=== PATIENT | female | born 1945 | race Asian ===

== ENCOUNTER 2016-05-13 18:51 | Inpatient (IN) | payer MEDICAID, MEDICARE ==
[2016-05-13] VITALS (8 sets, daily range): BP systolic 110–176; BP diastolic 58–106
[~2016-05-13] VITALS: Ht 157.5 cm; Wt 77.1 kg
[~2016-05-13 18:51] MED LIST: AMLO10TA2 PO; ASPI-991 PO; LEVO500T15 PO; MAG1TAB.8 PO; MONT10TA22 PO; PRED20TA PO; VALS80TA2 PO
[2016-05-13] MEDS ORDERED: methylPREDNISolone SOD SUCC 125 MG/2ML VIAL IV ONE (19:00)
[2016-05-13] MEDS ORDERED: IPRATROPIUM NEB FS 0.5 MG/2.5 ML AMPUL.NEB NEB ONE (19:00)
[2016-05-13] MEDS ORDERED: ALBUTEROL FS 2.5 MG/3 ML VIAL.NEB NEB ONE (19:00)
[2016-05-13] MEDS ORDERED: AZITHROMYCIN 500 MG in IV D5W 250 ML IV ONE (19:00)
[2016-05-13 19:14] LABS: BASOPHILS # (AUTO) 0.1 /CMM (0.0-0.2); BASOPHILS % (AUTO) 0.8 % (0.0-2.0); DIFF TOTAL % 100 %; EOSINOPHILS % (AUTO) 0.5 % (0.0-6.0); HEMATOCRIT 33 % (33-45); HEMOGLOBIN 10.9 g/dL (11.5-14.8); LYMPHOCYTES # (AUTO) 2.6 /CMM (0.8-4.8); LYMPHOCYTES % (AUTO) 33.4 % (20.0-44.0); MEAN CORPUSCULAR HEMOGLOBIN 28 PG (26.0-33.0); MEAN CORPUSCULAR HGB CONC 33 g/dl (31.0-36.0); MEAN CORPUSCULAR VOLUME 85 fL (82-100); MONOCYTES # (AUTO) 0.4 /CMM (0.1-1.30); MONOCYTES % (AUTO) 5.6 % (2.0-12.0); NEUTROPHILS # (AUTO) 4.5 /CMM (1.8-8.9); NEUTROPHILS % (AUTO) 59.7 % (43.0-81.0); PLATELET COUNT (AUTO) 298 /CMM (150-450); RED BLOOD CELL COUNT(AUTO) 3.88 MIL/uL (4.0-5.2); WHITE BLOOD COUNT (AUTO) 7.6 K/uL (4.3-11.0)
[2016-05-13] MEDS ORDERED: IPRATROPIUM NEB FS 0.5 MG/2.5 ML AMPUL.NEB ONE ×2 (19:24→19:25)
[2016-05-13] MEDS ORDERED: ALBUTEROL FS 2.5 MG/3 ML VIAL.NEB ONE (19:24)
[2016-05-13 19:33] LABS: TROPONIN I < 0.017 ng/mL (0.00-0.056)
[2016-05-13 19:37] LABS: LACTIC ACID 0.6 mmol/L (0.4-2.0)
[2016-05-13 19:38] LABS: ALANINE AMINOTRANSFERASE 22 U/L (12-78); ALBUMIN 3.5 g/dL (3.4-5.0); ANION GAP 7 (5-14); ASPARTATE AMINOTRANSFERASE 33 U/L (15-37); BILIRUBIN,DIRECT 0.1 mg/dL (0.0-0.2); BILIRUBIN,TOTAL 0.5 mg/dL (0.2-1.0); CALCIUM, SERUM 8.5 mg/dL (8.5-10.1); CARBON DIOXIDE 35 mmol/L (21-32); CREATININE 0.7 mg/dL (0.6-1.3); GFR 83 mL/min (>60); GLUCOSE 119 mg/dL (74-106); POTASSIUM 4.7 mmol/L (3.5-5.1); TOTAL PROTEIN, SERUM 7.3 g/dL (6.4-8.2); UREA NITROGEN, BLOOD 7 mg/dL (7-18)
[2016-05-13 19:50] LABS: INDIRECT BILIRUBIN 0.4 mg/dL (0.0-1.1); SODIUM SERUM 116 mmol/L (136-145)
[2016-05-13 19:51] LABS: CHLORIDE 80 mmol/L (98-107)
[2016-05-13 20:09] LABS: ABG BASE EXCESS 8.4 mmol/L; ABG PCO2 85.8 mmHg (35.0-45.0); ABG PH 7.264 (7.350-7.450); ABG PO2 257.4 mmHg (75.0-100.0); ABG TOTAL HEMOGLOBIN 11.3 G/dL (12.0-16.0); ALLEN TEST Pass; AaDO2 2.6 mmHg; O2Hb 97.9 % (94.0-97.0)
[2016-05-13] MEDS ORDERED: CLONIDINE HCL 0.1 MG TABLET PO PRN (21:30)
[2016-05-13] MEDS ORDERED: IPRATROPIUM NEB FS 0.5 MG/2.5 ML AMPUL.NEB NEB PRN (21:30)
[2016-05-13] MEDS ORDERED: ALBUTEROL FS 2.5 MG/0.5 ML VIAL.NEB NEB PRN (21:30)
[2016-05-13] MEDS ORDERED: SODIUM CHLORIDE 1000 MG TABLET.SOL PO ONE (21:30)
[2016-05-13] MEDS ORDERED: SODIUM CHLORIDE 1000 MG TABLET.SOL ONE (21:39)
[2016-05-14] VITALS (29 sets, daily range): BP systolic 94–138; BP diastolic 46–86
[2016-05-14 05:01] LABS: BASOPHILS % (AUTO) 0.1 % (0.0-2.0); DIFF TOTAL % 100 %; HEMATOCRIT 33 % (33-45); HEMOGLOBIN 10.6 g/dL (11.5-14.8); LYMPHOCYTES # (AUTO) 0.5 /CMM (0.8-4.8); LYMPHOCYTES % (AUTO) 7.6 % (20.0-44.0); MEAN CORPUSCULAR HEMOGLOBIN 28 PG (26.0-33.0); MEAN CORPUSCULAR HGB CONC 32 g/dl (31.0-36.0); MEAN CORPUSCULAR VOLUME 86 fL (82-100); MONOCYTES % (AUTO) 0.5 % (2.0-12.0); NEUTROPHILS % (AUTO) 91.8 % (43.0-81.0); PLATELET COUNT (AUTO) 296 /CMM (150-450); RED BLOOD CELL COUNT(AUTO) 3.84 MIL/uL (4.0-5.2); WHITE BLOOD COUNT (AUTO) 6.6 K/uL (4.3-11.0)
[2016-05-14 05:16] LABS: CALCIUM, SERUM 8.5 mg/dL (8.5-10.1); CREATININE 0.8 mg/dL (0.6-1.3); POTASSIUM 4.2 mmol/L (3.5-5.1)
[2016-05-14 05:27] LABS: THYROID STIMULATING HORMONE 1.038 uIU/mL (0.358-3.74)
[2016-05-14] MEDS ORDERED: methylPREDNISolone SOD SUCC 125 MG/2ML VIAL IV ONE (09:00)
[2016-05-14] MEDS: SODIUM CHLORIDE 1000 MG TABLET.SOL PO SCH ×2 (09:19→17:39)
[2016-05-14] MEDS ORDERED: IV SET PRIMARY PUMP SET 1 EA INFUS.SET MC ONE (10:11)
[2016-05-14] MEDS: ASPIRIN EC 81 MG TABLET.DR PO SCH (10:20)
[2016-05-14] MEDS: AMLODIPINE BESYLATE 10 MG TABLET PO SCH (10:20)
[2016-05-14] MEDS: Magnesium 1GM/D5W 100ML PREMIX 100 ML IV SCH ×4 (10:20→21:32)
[2016-05-14] MEDS: ACETAMINOPHEN 325 MG TABLET PO PRN ×2 (10:20→20:35)
[2016-05-14] MEDS: MONTELUKAST SODIUM (10MG) 10 MG TABLET PO SCH (10:20)
[2016-05-14] MEDS: VALSARTAN 80 MG TABLET PO SCH ×2 (10:21→17:00)
[2016-05-14 10:27] LABS: ABG BASE EXCESS 9.6 mmol/L; ABG HCO3 38.4 mmol/L; ABG PCO2 78.5 mmHg (35.0-45.0); ABG PH 7.307 (7.350-7.450); ABG PO2 57.3 mmHg (75.0-100.0); ABG TOTAL HEMOGLOBIN 11.1 G/dL (12.0-16.0); ALLEN TEST Pass; O2Hb 84.9 % (94.0-97.0)
[2016-05-14] MEDS: methylPREDNISolone SOD SUCC 40 MG/ML VIAL IV SCH ×3 (10:30→17:39)
[2016-05-14] MEDS: ALBUTEROL FS 2.5 MG/0.5 ML VIAL.NEB NEB SCH ×4 (10:49→23:10)
[2016-05-14] MEDS: IPRATROPIUM NEB FS 0.5 MG/2.5 ML AMPUL.NEB NEB SCH ×4 (10:49→23:10)
[2016-05-14] MEDS: LEVOFLOXACIN (500MG) 500 MG TABLET PO SCH (11:27)
[2016-05-14 20:41] LABS: URINE SODIUM, RANDOM 5 mmol/l (40-220)
[2016-05-15] VITALS (28 sets, daily range): BP systolic 90–173; BP diastolic 50–78
[2016-05-15] MEDS: IPRATROPIUM NEB FS 0.5 MG/2.5 ML AMPUL.NEB NEB SCH ×6 (03:12→23:53)
[2016-05-15] MEDS: ALBUTEROL FS 2.5 MG/0.5 ML VIAL.NEB NEB SCH ×6 (03:12→23:53)
[2016-05-15 04:36] LABS: DIFF TOTAL % 100 %; EOSINOPHILS % (AUTO) 0.3 % (0.0-6.0); HEMATOCRIT 32 % (33-45); HEMOGLOBIN 10.1 g/dL (11.5-14.8); LYMPHOCYTES # (AUTO) 0.8 /CMM (0.8-4.8); LYMPHOCYTES % (AUTO) 9.9 % (20.0-44.0); MEAN CORPUSCULAR HEMOGLOBIN 28 PG (26.0-33.0); MEAN CORPUSCULAR HGB CONC 32 g/dl (31.0-36.0); MEAN CORPUSCULAR VOLUME 87 fL (82-100); MONOCYTES # (AUTO) 0.3 /CMM (0.1-1.30); NEUTROPHILS # (AUTO) 7.3 /CMM (1.8-8.9); NEUTROPHILS % (AUTO) 85.8 % (43.0-81.0); PLATELET COUNT (AUTO) 303 /CMM (150-450); RED BLOOD CELL COUNT(AUTO) 3.68 MIL/uL (4.0-5.2); WHITE BLOOD COUNT (AUTO) 8.5 K/uL (4.3-11.0)
[2016-05-15 04:52] LABS: CALCIUM, SERUM 8.9 mg/dL (8.5-10.1); CREATININE 0.7 mg/dL (0.6-1.3); PHOSPHORUS 3.8 mg/dL (2.5-4.9); POTASSIUM 5.2 mmol/L (3.5-5.1)
[2016-05-15 07:48] LABS: TROPONIN I < 0.017 ng/mL (0.00-0.056)
[2016-05-15 07:55] LABS: CHOLESTEROL 250 mg/dL (<200); HDL CHOLESTEROL 67 mg/dL (40-60); LDL 166 mg/dL (0-99); THYROID STIMULATING HORMONE 0.468 uIU/mL (0.358-3.74); TRIGLYCERIDES 62 mg/dL (30-150)
[2016-05-15] MEDS: methylPREDNISolone SOD SUCC 40 MG/ML VIAL IV SCH ×3 (08:07→17:08)
[2016-05-15] MEDS: ASPIRIN EC 81 MG TABLET.DR PO SCH (08:08)
[2016-05-15] MEDS: SODIUM CHLORIDE 1000 MG TABLET.SOL PO SCH ×2 (08:08→16:56)
[2016-05-15] MEDS: MONTELUKAST SODIUM (10MG) 10 MG TABLET PO SCH (08:08)
[2016-05-15] MEDS: VALSARTAN 80 MG TABLET PO SCH (08:10)
[2016-05-15] MEDS: AMLODIPINE BESYLATE 10 MG TABLET PO SCH (08:10)
[2016-05-15] MEDS: ACETAMINOPHEN 325 MG TABLET PO PRN (08:27)
[2016-05-15] MEDS ORDERED: methylPREDNISolone SOD SUCC 125 MG/2ML VIAL IV ONE (09:00)
[2016-05-15] MEDS: LEVOFLOXACIN (500MG) 500 MG TABLET PO SCH (11:38)
[2016-05-15] MEDS ORDERED: IV NS 0.9% 500 ML IV ONE (12:00)
[2016-05-15] MEDS ORDERED: IV SET PRIMARY PUMP SET 1 EA INFUS.SET MC ONE (12:46)
[2016-05-15] MEDS ORDERED: SECONDARY IV SET 1 EA INFUS.SET MC ONE (14:09)
[2016-05-15] MEDS: SOD FERRIC GLUC 125 MG in IV NS 0.9% 100 ML IV SCH (14:10)
[2016-05-15] MEDS: DOCUSATE SODIUM 250 MG CAPSULE PO SCH (16:54)
[2016-05-16] VITALS: BP 138/68
[2016-05-16] MEDS: ALBUTEROL FS 2.5 MG/0.5 ML VIAL.NEB NEB SCH ×5 (03:30→20:17)
[2016-05-16] MEDS: IPRATROPIUM NEB FS 0.5 MG/2.5 ML AMPUL.NEB NEB SCH ×5 (03:30→20:17)
[2016-05-16 04:00] VITALS: BP 106/58
[2016-05-16 06:40] LABS: DIFF TOTAL % 100 %; HEMATOCRIT 33 % (33-45); HEMOGLOBIN 10.4 g/dL (11.5-14.8); LYMPHOCYTES % (AUTO) 14.7 % (20.0-44.0); MEAN CORPUSCULAR HEMOGLOBIN 28 PG (26.0-33.0); MEAN CORPUSCULAR HGB CONC 32 g/dl (31.0-36.0); MEAN CORPUSCULAR VOLUME 88 fL (82-100); MONOCYTES # (AUTO) 0.7 /CMM (0.1-1.30); MONOCYTES % (AUTO) 5.6 % (2.0-12.0); NEUTROPHILS # (AUTO) 10.7 /CMM (1.8-8.9); NEUTROPHILS % (AUTO) 79.7 % (43.0-81.0); PLATELET COUNT (AUTO) 373 /CMM (150-450); RED BLOOD CELL COUNT(AUTO) 3.74 MIL/uL (4.0-5.2); WHITE BLOOD COUNT (AUTO) 13.5 K/uL (4.3-11.0)
[2016-05-16 06:52] LABS: CALCIUM, SERUM 8.6 mg/dL (8.5-10.1); CREATININE 0.9 mg/dL (0.6-1.3); PHOSPHORUS 3.5 mg/dL (2.5-4.9); POTASSIUM 4.6 mmol/L (3.5-5.1)
[2016-05-16 08:00] VITALS: BP 128/59
[2016-05-16] MEDS: AMLODIPINE BESYLATE 10 MG TABLET PO SCH (08:35)
[2016-05-16] MEDS: DOCUSATE SODIUM 250 MG CAPSULE PO SCH ×2 (08:35→17:36)
[2016-05-16] MEDS: methylPREDNISolone SOD SUCC 40 MG/ML VIAL IV SCH ×3 (08:35→17:37)
[2016-05-16] MEDS: ASPIRIN EC 81 MG TABLET.DR PO SCH (08:35)
[2016-05-16] MEDS: SODIUM CHLORIDE 1000 MG TABLET.SOL PO SCH ×2 (08:36→17:36)
[2016-05-16] MEDS: MONTELUKAST SODIUM (10MG) 10 MG TABLET PO SCH (08:36)
[2016-05-16 10:14] LABS: ABG BASE EXCESS 9.4 mmol/L; ABG HCO3 37.4 mmol/L; ABG NOTIFIED BY AS RRT.; ABG PCO2 71.5 mmHg (35.0-45.0); ABG PH 7.336 (7.350-7.450); ABG PO2 55.8 mmHg (75.0-100.0); ABG TOTAL HEMOGLOBIN 10.8 G/dL (12.0-16.0); ALLEN TEST Pass; AaDO2 59.5 mmHg; O2Hb 85.7 % (94.0-97.0)
[2016-05-16] MEDS: LEVOFLOXACIN (500MG) 500 MG TABLET PO SCH (11:31)
[2016-05-16] MEDS: SOD FERRIC GLUC 125 MG in IV NS 0.9% 100 ML IV SCH (14:19)
[2016-05-16] MEDS: ACETAMINOPHEN 325 MG TABLET PO PRN (14:28)
[2016-05-16 16:00] VITALS: BP 115/58
[2016-05-16 20:00] VITALS: BP 112/64
[2016-05-17] MEDS: ALBUTEROL FS 2.5 MG/0.5 ML VIAL.NEB NEB SCH ×7 (00:06→23:52)
[2016-05-17] MEDS: IPRATROPIUM NEB FS 0.5 MG/2.5 ML AMPUL.NEB NEB SCH ×7 (00:06→23:52)
[2016-05-17 04:00] VITALS: BP 127/63
[2016-05-17 08:00] VITALS: BP 136/54
[2016-05-17] MEDS: SODIUM CHLORIDE 1000 MG TABLET.SOL PO SCH ×2 (09:03→16:10)
[2016-05-17] MEDS: MONTELUKAST SODIUM (10MG) 10 MG TABLET PO SCH (09:03)
[2016-05-17] MEDS: DOCUSATE SODIUM 250 MG CAPSULE PO SCH ×2 (09:04→16:09)
[2016-05-17] MEDS: ASPIRIN EC 81 MG TABLET.DR PO SCH (09:04)
[2016-05-17] MEDS: AMLODIPINE BESYLATE 10 MG TABLET PO SCH (09:04)
[2016-05-17] MEDS: methylPREDNISolone SOD SUCC 40 MG/ML VIAL IV SCH ×3 (09:04→16:09)
[2016-05-17] MEDS: LEVOFLOXACIN (500MG) 500 MG TABLET PO SCH (11:41)
[2016-05-17] MEDS ORDERED: SECONDARY IV SET 1 EA INFUS.SET MC ONE (15:24)
[2016-05-17] MEDS ORDERED: IV SET PRIMARY PUMP SET 1 EA INFUS.SET MC ONE (15:25)
[2016-05-17] MEDS: SOD FERRIC GLUC 125 MG in IV NS 0.9% 100 ML IV SCH (15:29)
[2016-05-17 16:00] VITALS: BP 156/79
[2016-05-17 20:00] VITALS: BP 110/62
[2016-05-17] MEDS ORDERED: ZOLPIDEM TARTRATE 5 MG TABLET ONE (23:42)
[2016-05-18] MEDS ORDERED: ZOLPIDEM TARTRATE 5 MG TABLET PO PRN
[2016-05-18] MEDS: ALBUTEROL FS 2.5 MG/0.5 ML VIAL.NEB NEB SCH ×3 (03:39→11:49)
[2016-05-18] MEDS: IPRATROPIUM NEB FS 0.5 MG/2.5 ML AMPUL.NEB NEB SCH ×3 (03:39→11:49)
[2016-05-18 04:00] VITALS: BP 127/64
[2016-05-18 06:53] LABS: BASOPHILS % (AUTO) 0.2 % (0.0-2.0); DIFF TOTAL % 100 %; HEMATOCRIT 35 % (33-45); HEMOGLOBIN 10.6 g/dL (11.5-14.8); LYMPHOCYTES % (AUTO) 17.3 % (20.0-44.0); MEAN CORPUSCULAR HEMOGLOBIN 27 PG (26.0-33.0); MEAN CORPUSCULAR HGB CONC 31 g/dl (31.0-36.0); MEAN CORPUSCULAR VOLUME 89 fL (82-100); MONOCYTES # (AUTO) 0.6 /CMM (0.1-1.30); MONOCYTES % (AUTO) 5.5 % (2.0-12.0); NEUTROPHILS # (AUTO) 8.8 /CMM (1.8-8.9); PLATELET COUNT (AUTO) 351 /CMM (150-450); RED BLOOD CELL COUNT(AUTO) 3.88 MIL/uL (4.0-5.2); WHITE BLOOD COUNT (AUTO) 11.4 K/uL (4.3-11.0)
[2016-05-18 07:40] LABS: ALBUMIN 3.2 g/dL (3.4-5.0); BILIRUBIN,TOTAL 0.2 mg/dL (0.2-1.0); CALCIUM, SERUM 8.7 mg/dL (8.5-10.1); CREATININE 0.8 mg/dL (0.6-1.3); POTASSIUM 3.6 mmol/L (3.5-5.1); TOTAL PROTEIN, SERUM 6.8 g/dL (6.4-8.2)
[2016-05-18] MEDS: methylPREDNISolone SOD SUCC 40 MG/ML VIAL IV SCH ×2 (08:21→12:46)
[2016-05-18] MEDS: ASPIRIN EC 81 MG TABLET.DR PO SCH (10:06)
[2016-05-18] MEDS: MONTELUKAST SODIUM (10MG) 10 MG TABLET PO SCH (10:06)
[2016-05-18 10:07] VITALS: BP 120/6
[2016-05-18] MEDS: AMLODIPINE BESYLATE 10 MG TABLET PO SCH (10:07)
[2016-05-18] MEDS: SODIUM CHLORIDE 1000 MG TABLET.SOL PO SCH (10:08)
[2016-05-18] MEDS: DOCUSATE SODIUM 250 MG CAPSULE PO SCH (10:10)
[2016-05-18] MEDS: LEVOFLOXACIN (500MG) 500 MG TABLET PO SCH (11:00)
[2016-05-18] MEDS ORDERED: IV SET PRIMARY PUMP SET 1 EA INFUS.SET MC ONE (13:12)
[2016-05-18] MEDS: SOD FERRIC GLUC 125 MG in IV NS 0.9% 100 ML IV SCH (13:32)
== END 2016-05-18 14:45 | disposition home or self-care (01) | DRG 424 ==
LOC: ER 18:56 → ICU 20:31 → TELE1 05-15 18:29 → MEDSG1 05-16 08:51
PROVIDERS: ADMIT Family Medicine; ATTEND Family Medicine
DX: E22.2 Syndrome of inappropriate secretion of antidiuretic hormone (principal); J96.22 Acute and chronic respiratory failure with hypercapnia; I50.43 Acute on chronic combined systolic (congestive) and diastolic (congestive) heart failure; I11.0 Hypertensive heart disease with heart failure; J44.1 Chronic obstructive pulmonary disease with (acute) exacerbation; D64.9 Anemia, unspecified; E66.2 Morbid (severe) obesity with alveolar hypoventilation; E83.51 Hypocalcemia; M17.9 Osteoarthritis of knee, unspecified; M16.10 Unilateral primary osteoarthritis, unspecified hip; E78.5 Hyperlipidemia, unspecified; E86.9 Volume depletion, unspecified; E87.5 Hyperkalemia; Z99.81 Dependence on supplemental oxygen; Z68.31 Body mass index [BMI] 31.0-31.9, adult
CPT/HCPCS: 36415; 36600; 71010-TC; 80048-TC; 80053-TC; 80061-TC; 80076-TC; 83540-TC; 83605-TC; 83735-TC; 83880; 83935-TC; 84100-TC; 84300-TC; 84439-TC; 84443-TC; 84484-TC; 85025-TC; 87040-TC; 87081-TC; 93307-TC; 94660; 94760-TC; 94799-TC; 97001-TC; 97116-TC; 97530-TC; 99082-TC; A4606; A6402; J2916; J2920; J2930; J3475; J7030; J7040; Z7610

== ENCOUNTER 2017-08-17 14:12 | Inpatient (IN) | payer MEDICAID, MEDICARE ==
[~2017-08-17] VITALS: Ht 142.2 cm; Wt 68.0 kg
[~2017-08-17 14:12] MED LIST changes: -AMLO10TA2 PO; +AMLO10TA6 PO; +ASPI-1152 PO; -ASPI-991 PO; -LEVO500T15 PO; -PRED20TA PO
--- NOTE | 2017-08-17 14:35 | NUR ---
PT PRESENTED TO THE ER WITH A C/O WEAKNESS, TIRED AND O2 SAT OF 84% ON RA WHILE IN TRIAGE. PT WAS PLACED ON 2L O2 VIA NC AND IS SATURATING 98%. PT SOUNDS TIGHT AND BREATH SOUNDS DIMINISHED. PT IS ON THE MONITOR AND CONTINUOUS PULSE OX. PT'S SON IS AT THE BEDSIDE.
--- NOTE | 2017-08-17 14:47 | NUR ---
DR. ALLAN IS AT THE BEDSIDE SPEAKING TO THE PT AND HER SON.
[2017-08-17] MEDS ORDERED: IPRATROPIUM NEB FS 0.5 MG/2.5 ML AMPUL.NEB NEB ONE (15:00)
[2017-08-17] MEDS ORDERED: ASPIRIN 81 MG TAB.CHEW PO ONE (15:00)
[2017-08-17] MEDS ORDERED: ALBUTEROL FS 2.5 MG/3 ML VIAL.NEB NEB ONE (15:00)
[2017-08-17] MEDS ORDERED: IPRATROPIUM NEB FS 0.5 MG/2.5 ML AMPUL.NEB ONE (15:04)
[2017-08-17] MEDS ORDERED: ALBUTEROL FS 2.5 MG/3 ML VIAL.NEB ONE (15:04)
[2017-08-17] MEDS ORDERED: ASPIRIN 81 MG TAB.CHEW ONE (15:05)
[2017-08-17 15:06] LABS: HEMOGLOBIN 8.5 g/dL (11.5-14.8); MEAN CORPUSCULAR VOLUME 87 fL (82-100); MONOCYTES # (AUTO) 0.4 /CMM (0.1-1.30); WHITE BLOOD COUNT (AUTO) 6.3 K/uL (4.3-11.0)
[2017-08-17 15:09] LABS: BASOPHILS # (AUTO) 0.1 /CMM (0.0-0.2); BASOPHILS % (AUTO) 2.1 % (0.0-2.0); EOSINOPHILS % (AUTO) 2.1 % (0.0-6.0); HEMATOCRIT 26 % (33-45); LYMPHOCYTES # (AUTO) 1.7 /CMM (0.8-4.8); LYMPHOCYTES % (AUTO) 26.4 % (20.0-44.0); MEAN CORPUSCULAR HGB CONC 32 g/dl (31.0-36.0); MONOCYTES % (AUTO) 6.3 % (2.0-12.0); NEUTROPHILS % (AUTO) 63.1 % (43.0-81.0); PLATELET COUNT (AUTO) 365 /CMM (150-450); RDW COEFFICIENT OF VARIATION 14.9 (11.5-15.0); RED BLOOD CELL COUNT(AUTO) 3.03 MIL/uL (4.0-5.2)
--- NOTE | 2017-08-17 15:09 | NUR ---
RT AT THE BEDSIDE FOR BREATHING TX.
--- NOTE | 2017-08-17 15:10 | NUR ---
CXR IN PROGRESS AT THE BEDSIDE.
[2017-08-17 15:16] LABS: CALCIUM, SERUM 8.5 mg/dL (8.5-10.1); CARBON DIOXIDE 34 mmol/L (21-32); CHLORIDE 96 mmol/L (98-107); CREATININE 1.7 mg/dL (0.6-1.3); GLUCOSE 145 mg/dL (74-106); POTASSIUM 3.6 mmol/L (3.5-5.1); SODIUM SERUM 135 mmol/L (136-145); UREA NITROGEN, BLOOD 21 mg/dL (7-18)
[2017-08-17 15:24] LABS: TROPONIN I < 0.017 ng/mL (0.00-0.056)
[2017-08-17 15:29] LABS: ALANINE AMINOTRANSFERASE 19 U/L (12-78); ALKALINE PHOSPHATASE 28 U/L (46-116); ASPARTATE AMINOTRANSFERASE 18 U/L (15-37); B-TYPE NATRIURETIC PEPTIDE 490 PG/ML (0-125); BILIRUBIN,DIRECT 0.1 mg/dL (0.0-0.2); BILIRUBIN,TOTAL 0.2 mg/dL (0.2-1.0); TOTAL PROTEIN, SERUM 7.2 g/dL (6.4-8.2)
[2017-08-17 15:47] LABS: INR 0.96 (0.87-1.13)
[2017-08-17] MEDS ORDERED: MELO-107 PO (16:12)
[2017-08-17] MEDS ORDERED: ALBU18HF2 IH (16:12)
[2017-08-17] MEDS ORDERED: FOLI1TAB16 PO (16:12)
[2017-08-17] MEDS ORDERED: OMEP20CA10 PO (16:12)
[2017-08-17] MEDS ORDERED: POTA8TAB8 PO (16:12)
[2017-08-17] MEDS ORDERED: FENO134C PO (16:12)
[2017-08-17] MEDS ORDERED: RANO500T3 PO (16:12)
[2017-08-17] MEDS ORDERED: BUDE10.2 IH (16:13)
[2017-08-17] MEDS ORDERED: ATOR10TA PO (16:17)
[2017-08-17] MEDS ORDERED: FURO-144 PO (16:18)
[2017-08-17] MEDS ORDERED: SPIR25TA6 PO (16:18)
--- NOTE | 2017-08-17 16:18 | NUR ---
BED 322-1
--- NOTE | 2017-08-17 16:26 | NUR ---
DR. GOFF ANSWERING SERVICE CALLED, ALL DRConnor CALLS ARE BEING HELD TIL 1700, ASSEMBLY LINE UPHOLSTERER WILL PAGED DR. GOFF AT 1700.
--- NOTE | 2017-08-17 17:52 | NUR ---
REPORT GIVEN TO KOKO PRIDE
--- NOTE | 2017-08-17 17:53 | NUR ---
TELEPHONE REPORT RECEIVED FROM ER
--- NOTE | 2017-08-17 18:10 | NUR ---
COIN BOX INSPECTOR NOTE PATIENT ARRIVE TO THE UNIT. SKIN APPEARS INTACT. SPO2 96% ON 2 L OXYGEN VIA NASAL CANNULA. LAC 20 GAUGE IV IS INTACT AND PATENT. REFUSES TO TAKE OUT HER OWN GOWN. PATIENT IS AWAKE, ALERT, BULGARIAN SPEAKING. UNDERSTANDS VERY LITTLE BENGALI. REQUIRES GESTURES IN ODER TO FOLLOW COMMANDS. ASSISTED TO THE BED SAFELY. BED IS LOCKED IN LOWEST POSITION, SIDE RAILS UP X2, BED ALARM IS ON. CALL LIGHT WITHIN REACH. EDUCATED TO USE THE CALL LIGHT TO CALL FOR ASSISTANCE. WILL ENDORSE TO THE BAND INSTRUMENT MAKER NURSE FOR THE ADMISSION.
--- NOTE | 2017-08-17 18:16 | NUR ---
EXTERNAL ELECTION SUPERVISOR READING SR 73 BPM. VS WNL
[2017-08-17 18:20] VITALS: BP 147/79
--- NOTE | 2017-08-17 18:20 | NUR ---
CALL PT'S SON WITH ANY QUESTIONS OR CONCERNS AT . CALLED PT'S SON TO LET HIM KNOW THAT THE PT WAS ADMITTED TO THE HOSPITAL TO ROOM 322-7
--- NOTE | 2017-08-17 18:36 | NUR ---
Called dr Carlson's exchange for admitting orders. didn't answer the page. Was given cell phone number. Called 's cell phon. didn't respond. Will attempt again.
--- NOTE | 2017-08-17 18:48 | NUR ---
CALLED DR. SALES AND LEFT A VOICEMAIL TO CALL BACK FOR ADMISSION ORDERS. AWAITING A CALL.
--- NOTE | 2017-08-17 19:00 | NUR ---
CALLED DR GOFF AGAIN. UNABLE TO REACH THE DOCTOR. PATIENT IS IN BED, ASLEEP, EASILY AWAKEN. SPO2 96% ON 2L OXYGEN VIA NC. LAC 20 GAUGE IV IS INTACT/PATENT. EXTERNAL CAR PRE COOLER READING SR 78. DENIES PAIN AT THIS TIME. NO ADMISSION ORDERS RECEIVED YET. WILL ENDORSE TO THE BEAUTY CULTURE TEACHER NURSE FOR NEIL.
--- NOTE | 2017-08-17 19:15 | NUR ---
LEAD APPLICATIONS DEVELOPER OPENING NOTES RECEIVED PT SITTING UPRIGHT IN BED. AWAKE AND RESPONSIVE. AFEBRILE, RESPIRATIONS ARE EVEN AND UNLABORED. NOT IN ANY ACUTE DISTRESS NOTED. PT DENIES ANY PAIN OR DISCOMFORT, N/V, SOB. IV SITE INTACT, NO INFILTRATION NOTED. DRESSING KEPT CLEAN AND DRY. SAFETY MEASURES ARE IN PLACE. CALL LIGHT IS LEFT WITHIN REACH. WILL CONTINUE TO MONITOR THROUGHOUT SHIFT FOR CONTINUITY OF CARE. PLACED A CALL TO DR. GOFF RE: ADMISSION, STILL WAITING A CALL BACK.
[2017-08-17 20:00] VITALS: BP 147/79
--- NOTE | 2017-08-17 20:00 | NUR ---
FITNESS LEADER NOTES RECEIVED A CALL BACK FROM DR. GOFF W/ ORDERS TO CONTINUE HOME MEDS. CBC, MG, BMP, IRON PANEL, TSH, D-DIMER, TROPONIN, UA C&S IN AM. 2GM NA/RENAL DIET. FULL CODE. CONSULT WITH DR. NIXON, DR. BECERRA, DR. LESLIE. ALL ORDERS READ BACK AND VERIFIED. ORDERS NOTED AND CARRIED OUT.
[2017-08-18] VITALS (20 sets, daily range): BP systolic 117–158; BP diastolic 61–112
--- NOTE | 2017-08-18 06:55 | NUR ---
AUDIO VISUAL SECRETARY CLOSING NOTES NEEDS MET AND RENDERED. AWAKE AND RESPONSIVE. RESPIRATIONS ARE EVEN AND UNLABORED, NOT IN ANY ACUTE DISTRESS NOTED. DENIES ANY SOB, CHEST PAIN, N/V. IV SITE INTACT, DRESSING KEPT CLEAN AND DRY. SAFETY MEASURES ARE IN PLACE. WILL ENDORSE TO NEXT SHIFT FOR CONTINUITY OF CARE.
--- NOTE | 2017-08-18 07:05 | NUR ---
CHIEF OF ANESTHESIOLOGY OPENING NOTES PATIENT IN BED EYES CLOSED, RESPONSIVE TO VERBAL AND TACTILE STIMULI. NO ACUTE DISTRESS NOTED. BREATHING UNLABORED. WITH O2 @2LPM VIA NC. IV ACCESS PATENT AND INTACT. SAFETY MEASURES IN PLACE. CALL LIGHT WITHIN REACH. WILL CONTINUE TO MONITOR ACCORDINGLY.
[2017-08-18 07:27] LABS: BASOPHILS % (AUTO) 0.7 % (0.0-2.0); EOSINOPHILS % (AUTO) 1.5 % (0.0-6.0); HEMATOCRIT 28 % (33-45); HEMOGLOBIN 9.1 g/dL (11.5-14.8); LYMPHOCYTES % (AUTO) 31.1 % (20.0-44.0); MEAN CORPUSCULAR HGB CONC 32 g/dl (31.0-36.0); MEAN CORPUSCULAR VOLUME 89 fL (82-100); MONOCYTES # (AUTO) 0.4 /CMM (0.1-1.30); MONOCYTES % (AUTO) 6.4 % (2.0-12.0); NEUTROPHILS # (AUTO) 3.9 /CMM (1.8-8.9); NEUTROPHILS % (AUTO) 60.3 % (43.0-81.0); PLATELET COUNT (AUTO) 354 /CMM (150-450); RDW COEFFICIENT OF VARIATION 15.7 (11.5-15.0); RED BLOOD CELL COUNT(AUTO) 3.19 MIL/uL (4.0-5.2); WHITE BLOOD COUNT (AUTO) 6.5 K/uL (4.3-11.0)
[2017-08-18 07:45] LABS: CALCIUM, SERUM 9.2 mg/dL (8.5-10.1); CARBON DIOXIDE 35 mmol/L (21-32); CHLORIDE 102 mmol/L (98-107); CREATININE 1.3 mg/dL (0.6-1.3); GLUCOSE 90 mg/dL (74-106); MAGNESIUM 2.2 mg/dL (1.8-2.4); POTASSIUM 4.2 mmol/L (3.5-5.1); SODIUM SERUM 140 mmol/L (136-145); UREA NITROGEN, BLOOD 14 mg/dL (7-18)
[2017-08-18 07:50] LABS: TROPONIN I < 0.017 ng/mL (0.00-0.056)
[2017-08-18 07:52] LABS: THYROID STIMULATING HORMONE 1.485 uIU/mL (0.358-3.74)
[2017-08-18 07:59] LABS: IRON, SERUM 65 ug/dl (50-175); TOTAL IRON BINDING CAPACITY 426 ug/dl (250-450)
[2017-08-18] MEDS ORDERED: Medication Not On Formulary EA (Budesonide/Formoterol Fumarate (Symbicort 160-4.5 Mcg In IH SCH (09:00)
[2017-08-18] MEDS ORDERED: Medication Not On Formulary EA (Ranolazine (Ranexa) 500 MG) PO SCH (09:00)
[2017-08-18] MEDS ORDERED: Medication Not On Formulary EA (Fenofibrate,Micronized (Fenofibrate) 134 MG) PO SCH (09:00)
[2017-08-18] MEDS: PANTOPRAZOLE 40 MG TABLET.DR PO SCH (09:13)
[2017-08-18] MEDS: FOLIC ACID 1 MG TABLET PO SCH (09:14)
[2017-08-18] MEDS: FUROSEMIDE 40 MG TABLET PO SCH ×2 (09:14→16:58)
[2017-08-18] MEDS: VALSARTAN 80 MG TABLET PO SCH (09:14)
[2017-08-18] MEDS: SPIRONOLACTONE 25 MG TABLET PO SCH (09:14)
[2017-08-18] MEDS: ATORVASTATIN 10 MG TABLET PO SCH (09:14)
[2017-08-18] MEDS: ASPIRIN EC 81 MG TABLET.DR PO SCH (09:14)
[2017-08-18] MEDS: MELOXICAM 7.5 MG TABLET PO SCH (09:15)
[2017-08-18 10:45] LABS: ABG BASE EXCESS 9.1 mmol/L; ABG OXYGEN SATURATION 94.7 % (92.0-98.5); ABG PCO2 80.2 mmHg (35.0-45.0); ABG PH 7.289 (7.350-7.450); ABG PO2 85.3 mmHg (75.0-100.0); AaDO2 19.7 mmHg; COHb 0.5 % (0.5-1.5); MetHb 0.5 % (0.0-1.5); O2Hb 93.8 % (94.0-97.0); SITE, ABG Right Radial; VENT MODE, BG NASAL CANNULA
[2017-08-18] MEDS ORDERED: LEVOFLOXACIN 500 MG /D5W 100ML 500 MG in PREMIX 1 EA IV SCH (11:00)
--- NOTE | 2017-08-18 11:05 | NUR ---
CLEANERS NOTES SEEN AND EVALUATED BY DR GOFF WITH NEW ORDERS MADE. NOTED AND CARRIED OUT.
--- NOTE | 2017-08-18 11:25 | NUR ---
AMBULATORY CARE NOTES REPORT GIVEN TO IONA OF ICU. SON JOON NOTIFIED.
[2017-08-18] MEDS ORDERED: LEVOFLOXACIN 500 MG /D5W 100ML 500 MG in PREMIX 1 EA IV ONE (12:00)
[2017-08-18] MEDS: POTASSIUM CHLORIDE 10 MEQ TABLET.SA PO SCH ×2 (12:39→16:58)
[2017-08-18] MEDS ORDERED: ENOXAPARIN SODIUM 80 MG/0.8 ML DISP.SYRIN SQ SCH ×2 (13:00→17:00)
[2017-08-18] MEDS ORDERED: ALBUTEROL FS 2.5 MG/0.5 ML VIAL.NEB NEB PRN (13:30)
[2017-08-18] MEDS: ALBUTEROL FS 2.5 MG/0.5 ML VIAL.NEB NEB SCH ×3 (13:50→20:18)
[2017-08-18] MEDS: IPRATROPIUM NEB FS 0.5 MG/2.5 ML AMPUL.NEB NEB SCH ×3 (13:50→20:18)
[2017-08-18 14:03] LABS: ABG BASE EXCESS 13.5 mmol/L; ABG PH 7.377 (7.350-7.450); AaDO2 18.7 mmHg; COHb 0.3 % (0.5-1.5); FRACTIONATED INSPIRED OXYGEN 22.5 %; MetHb 0.2 % (0.0-1.5); O2Hb 88.6 % (94.0-97.0); SITE, ABG Right Radial; VENT MODE, BG 0.5L NC
[2017-08-18] MEDS ORDERED: ALBUTEROL FS 2.5 MG/0.5 ML VIAL.NEB NEB SCH (15:30)
--- NOTE | 2017-08-18 20:00 | NUR ---
received pt from day shift, alert, follows commands, SR, on 0.5L 02, sat well, tolerates diet, uses bedside commode, v/s stable, no pain, pt turns and repositions by herself.
[2017-08-19] VITALS (27 sets, daily range): BP systolic 110–170; BP diastolic 53–97
--- NOTE | 2017-08-19 | NUR ---
pt is resting in the bed, v/s stable, no pain.
[2017-08-19] MEDS: IPRATROPIUM NEB FS 0.5 MG/2.5 ML AMPUL.NEB NEB SCH ×7 (00:02→23:54)
[2017-08-19] MEDS: ALBUTEROL FS 2.5 MG/0.5 ML VIAL.NEB NEB SCH ×7 (00:02→23:54)
--- NOTE | 2017-08-19 04:28 | NUR ---
pt is resting in the bed, no acute distress overnight, SR, v/s stable, no pain, pt cleaned and changed.
[2017-08-19 05:11] LABS: BASOPHILS # (AUTO) 0.1 /CMM (0.0-0.2); BASOPHILS % (AUTO) 0.9 % (0.0-2.0); EOSINOPHILS % (AUTO) 1.4 % (0.0-6.0); HEMATOCRIT 27 % (33-45); HEMOGLOBIN 8.6 g/dL (11.5-14.8); LYMPHOCYTES # (AUTO) 2.1 /CMM (0.8-4.8); MEAN CORPUSCULAR HGB CONC 32 g/dl (31.0-36.0); MEAN CORPUSCULAR VOLUME 88 fL (82-100); MONOCYTES # (AUTO) 0.5 /CMM (0.1-1.30); MONOCYTES % (AUTO) 6.5 % (2.0-12.0); NEUTROPHILS % (AUTO) 64.2 % (43.0-81.0); PLATELET COUNT (AUTO) 331 /CMM (150-450); RDW COEFFICIENT OF VARIATION 15.8 (11.5-15.0); RED BLOOD CELL COUNT(AUTO) 3.05 MIL/uL (4.0-5.2); WHITE BLOOD COUNT (AUTO) 7.8 K/uL (4.3-11.0)
[2017-08-19 05:24] LABS: TROPONIN I < 0.017 ng/mL (0.00-0.056)
[2017-08-19 05:29] LABS: ALANINE AMINOTRANSFERASE 19 U/L (12-78); ALKALINE PHOSPHATASE 31 U/L (46-116); ASPARTATE AMINOTRANSFERASE 19 U/L (15-37); BILIRUBIN,TOTAL 0.2 mg/dL (0.2-1.0); CALCIUM, SERUM 9.3 mg/dL (8.5-10.1); CARBON DIOXIDE 36 mmol/L (21-32); CHLORIDE 100 mmol/L (98-107); CREATININE 1.4 mg/dL (0.6-1.3); GLUCOSE 90 mg/dL (74-106); MAGNESIUM 2.7 mg/dL (1.8-2.4); PHOSPHORUS 3.9 mg/dL (2.5-4.9); POTASSIUM 3.9 mmol/L (3.5-5.1); SODIUM SERUM 138 mmol/L (136-145); TOTAL PROTEIN, SERUM 7.2 g/dL (6.4-8.2); UREA NITROGEN, BLOOD 16 mg/dL (7-18)
--- NOTE | 2017-08-19 07:15 | NUR ---
received patient a/ox3. denies sob, difficulty breathing or pain. patient is 100% 2lpm nc. on 1lpm nc patient satting 91%. patient needs in reach. safety precautions in place. and will round prn
[2017-08-19] MEDS: ASPIRIN EC 81 MG TABLET.DR PO SCH (08:27)
[2017-08-19] MEDS: PANTOPRAZOLE 40 MG TABLET.DR PO SCH (08:27)
[2017-08-19] MEDS: FOLIC ACID 1 MG TABLET PO SCH (08:27)
[2017-08-19] MEDS: SPIRONOLACTONE 25 MG TABLET PO SCH (08:27)
[2017-08-19] MEDS: MELOXICAM 7.5 MG TABLET PO SCH (08:27)
[2017-08-19] MEDS: POTASSIUM CHLORIDE 10 MEQ TABLET.SA PO SCH ×3 (08:27→16:25)
[2017-08-19] MEDS: ATORVASTATIN 10 MG TABLET PO SCH (08:27)
[2017-08-19] MEDS: FUROSEMIDE 40 MG TABLET PO SCH (08:27)
[2017-08-19] MEDS: VALSARTAN 80 MG TABLET PO SCH (08:28)
[2017-08-19] MEDS: ENOXAPARIN SODIUM 30 MG/0.3 ML DISP.SYRIN SQ SCH (08:38)
--- NOTE | 2017-08-19 09:00 | NUR ---
DR GOFF AT BEDSIDE. UPDATED ON PATIENT CONDITION, VS, LABS. PER MD HE WILL DC DOP VEIN MAPPING PREVIOUS WAS NEGATIVE
--- NOTE | 2017-08-19 09:15 | NUR ---
PER DR LESLIE CANCEL ABG FOR TODAY
--- NOTE | 2017-08-19 09:45 | NUR ---
DR MOSQUERA AT BEDSIDE. AWARE OF PATIENT VS, LABS AND CONDITION. PER MD DOWNGRADE PATIENT TO BERTRAND. GRADUATE ADVISOR AWARE
--- NOTE | 2017-08-19 11:45 | NUR ---
PT TX TO BERTRAND IN STABLE CONDITION. REPORT AND NEIL GIVEN TO KOKO BROWN. PATIENT SON JOON CALLED TO UPDATE ON TX PER REQUEST.
[2017-08-19] MEDS ORDERED: LEVOFLOXACIN 250 MG /D5W 50 ML 250 MG in PREMIX 1 EA IV SCH (12:00)
--- NOTE | 2017-08-19 12:00 | NUR ---
BERTRAND RN NOTE: RECEIVED PATIENT TO ROOM 117-1 AND REPORT WAS GIVEN BY IBETH LIQUOR GRINDING MILL OPERATOR. PATIENT AWAKE, ALERT AND BANGLA SPEAKING. PLEASANT AND COOPERATIVE. ON O2 O.5L/MIN AND SATURATING 98%. HOB ELEVATED. (L) AC IV LINE NOTED PATENT AND INTACT. ON RAILROAD DINING CAR STEWARD/STEWARDESS, SR HR= 79. CALL LIGHT WITHIN REACH. NEEDS ANTICIPATED.
--- NOTE | 2017-08-19 15:00 | NUR ---
BERTRAND RN NOTE: THE PATIENT WAS SEEN BY THE PT FOR EVAL, AND ACCORDING TO THE PT THE PATIENT IS OK TO AMBULATE W/ ASSIST W/ A FWW. PT CALLED THE SON TO INFORM HIM ABOUT THE EVALUATION.
--- NOTE | 2017-08-19 19:55 | NUR ---
BERTRAND RN NOTE: PATIENT IN BED, AWAKE, ALERT AND SPEAKING BANGLA/BON. PLEASANT AND REMAINED COOPERATIVE. (L) AC IV LINE REMAINED PATENT AND INTACT. ON O2 0.5L/MIN VIA NC AND SATURATING 99%. HOB ELEVATED. ATE 100% OF HER DINNER. CALL LIGHT WITHIN REACH. REPORT GIVEN TO PM SHIFT NURSE FOR CONTINUITY OF CARE.
[2017-08-20] MEDS: IPRATROPIUM NEB FS 0.5 MG/2.5 ML AMPUL.NEB NEB SCH ×2 (03:05→07:09)
[2017-08-20] MEDS: ALBUTEROL FS 2.5 MG/0.5 ML VIAL.NEB NEB SCH ×2 (03:05→07:09)
[2017-08-20 04:00] VITALS: BP 157/74
[2017-08-20 06:33] LABS: BASOPHILS % (AUTO) 0.5 % (0.0-2.0); EOSINOPHILS % (AUTO) 3.2 % (0.0-6.0); HEMATOCRIT 28 % (33-45); HEMOGLOBIN 8.9 g/dL (11.5-14.8); LYMPHOCYTES % (AUTO) 31.4 % (20.0-44.0); MEAN CORPUSCULAR HGB CONC 32 g/dl (31.0-36.0); MEAN CORPUSCULAR VOLUME 88 fL (82-100); MONOCYTES # (AUTO) 0.5 /CMM (0.1-1.30); MONOCYTES % (AUTO) 7.3 % (2.0-12.0); NEUTROPHILS # (AUTO) 3.7 /CMM (1.8-8.9); NEUTROPHILS % (AUTO) 57.6 % (43.0-81.0); PLATELET COUNT (AUTO) 357 /CMM (150-450); RDW COEFFICIENT OF VARIATION 16.1 (11.5-15.0); RED BLOOD CELL COUNT(AUTO) 3.15 MIL/uL (4.0-5.2); WHITE BLOOD COUNT (AUTO) 6.4 K/uL (4.3-11.0)
--- NOTE | 2017-08-20 06:38 | NUR ---
RN CLOSING NOTE PT REMAINS IN NO ACUTE DISTRESS IN BED. PT DID NOT HAVE ANY SIGNIFICANT CHANGE IN CONDITION DURING SHIFT. ALL NEEDS MET, ALL ORDERS CARRIED OUT. WILL ENDORSE CARE TO AM RN FOR CONTINUITY OF CARE.
[2017-08-20 06:45] LABS: CALCIUM, SERUM 8.9 mg/dL (8.5-10.1); CARBON DIOXIDE 34 mmol/L (21-32); CHLORIDE 102 mmol/L (98-107); CREATININE 1.4 mg/dL (0.6-1.3); GLUCOSE 100 mg/dL (74-106); POTASSIUM 3.9 mmol/L (3.5-5.1); SODIUM SERUM 140 mmol/L (136-145); UREA NITROGEN, BLOOD 19 mg/dL (7-18)
--- NOTE | 2017-08-20 07:37 | NUR ---
CYLINDER TESTER NOTE PATIENT IN BED , ALL NEEDS ATTENDED, ON BREATHING TX AT THIS TIME ALERT , ORIENTED X3 , ON TELE MONITOR SR 83 , LT FA HL INTACT , BED IN LOWEST AND LOCKED POSITION , CALL LIGHT WITHIN REACH ,WILL CONT TO MONITOR CLOSELY, WITH SLIGHT SOB NOTED KEEP HOB ELEVATED, PLAN OF CARE DISCUSSED WITH PATIENT
[2017-08-20 08:00] VITALS: BP 141/70
--- NOTE | 2017-08-20 08:30 | NUR ---
POLICE LIEUTENANT PATROL NOTE SEEN BY DR GOFF , ORDERED TO D\C HOME NOTIFIED THAT EARLIER PER RT O2 SAT WAS 88-86%, SALTED PATIENT HAS O2 AT HOME AND SHE NEED TO FOLLOW WITH BIOPHARMACEUTICAL REP
[2017-08-20] MEDS: PANTOPRAZOLE 40 MG TABLET.DR PO SCH (08:39)
[2017-08-20] MEDS: POTASSIUM CHLORIDE 10 MEQ TABLET.SA PO SCH (08:39)
[2017-08-20] MEDS: ATORVASTATIN 10 MG TABLET PO SCH (08:39)
[2017-08-20] MEDS: MELOXICAM 7.5 MG TABLET PO SCH (08:40)
[2017-08-20] MEDS: FOLIC ACID 1 MG TABLET PO SCH (08:40)
[2017-08-20] MEDS: ASPIRIN EC 81 MG TABLET.DR PO SCH (08:40)
[2017-08-20] MEDS: SPIRONOLACTONE 25 MG TABLET PO SCH (08:40)
[2017-08-20] MEDS: ENOXAPARIN SODIUM 30 MG/0.3 ML DISP.SYRIN SQ SCH (08:41)
[2017-08-20] MEDS ORDERED: SPIR25TA PO (08:50)
[2017-08-20] MEDS ORDERED: ASPI-1152 PO (08:50)
[2017-08-20] MEDS ORDERED: MELO7.5T12 PO (08:50)
[2017-08-20] MEDS ORDERED: FORMOTEROL FUMARATE IH (08:50)
[2017-08-20] MEDS ORDERED: RANOLAZINE PO (08:50)
[2017-08-20] MEDS ORDERED: VALS80TA2 PO (08:50)
[2017-08-20] MEDS ORDERED: ATOR10TA PO (08:50)
[2017-08-20] MEDS ORDERED: BUDESONIDE IH (08:50)
[2017-08-20] MEDS ORDERED: PANT40TA2 PO (08:50)
[2017-08-20] MEDS ORDERED: FENOFIBRATE MICRONIZED PO (08:50)
[2017-08-20] MEDS ORDERED: FOLI1TAB16 PO (08:50)
[2017-08-20] MEDS ORDERED: ALBU2.5V13 NEB (08:50)
[2017-08-20 08:53] VITALS: BP 141/70
[2017-08-20] MEDS: VALSARTAN 80 MG TABLET PO SCH (08:53)
--- NOTE | 2017-08-20 10:00 | NUR ---
BLOOD COORDINATOR NOTE CHARGE NURSE JOVANNI SPOKE WITH ORTHOPAEDIC NURSE ABOUT HOME HEALTH ,STATED STILL OK TO D\IC PATIENT ALREADY HAVE HOME HEALTH WILL F\U, CALLED SON JOON WILL MEMORIAL ADVISER PATIENT ABOUT 1200
--- NOTE | 2017-08-20 11:17 | NUR ---
CLERICAL ADMINISTRATOR NOTE DAUGHTER IN [facility] AT BEDSIDE D\C INSTRUCTION GIVEN TO HER , UNDERSTOOD , HL REMOVED NO S\S INFECTION NOTED ,NO BLEEDING NOTED , TELE REMOVED , ALSO INSTRUCTED TO F\U WITH PRIMARY CARE DOCTOR AND FOLLOW UP WITH HOME HEALTH [facility] , INFORMED THAT KONG MENDOZA Addendum: 08/20/17 at 1131 by ARMANDO HICKS RN SOCKET WELDER HELPER WAS INFORM BY CHARGE NURSE TO MAKE SURE TO ARRANGE HOME HEALTH , PATIENT HAS O2 AT HOME AND DAUGHTER IN [facility] PROVIDED PORTABLE O2 AT BEDSIDE TO TRANSPORT PATIENT HOME, PX GIVEN TO DAUGHTER IN [facility] ,UNDERSTANDS ,EMPLANED POSSIBLE SIDE EFFECTS ALSO EXPLAINED HOW TO TAKE HOME MEDS
--- NOTE | 2017-08-20 11:31 | NUR ---
FOAM CHARGER NOTE TAKEN TO LOBBY ON \WC WITH STABLE CONDITION BP 128/78 SAT 96%, TAKEN TO LOBBY BY ROCK MASON
== END 2017-08-20 11:18 | disposition home health service (06) | DRG 133 ==
LOC: ER 14:16 → TELE 17:27 → ICU 08-18 11:40 → TELE-TD 08-19 11:39 → TELE1 08-19 23:10 → UNDODISIN 08-20 11:11
PROVIDERS: ADMIT Family Medicine; ATTEND Family Medicine
DX: J96.21 Acute and chronic respiratory failure with hypoxia (principal); N17.0 Acute kidney failure with tubular necrosis; I50.33 Acute on chronic diastolic (congestive) heart failure; E87.2 Acidosis; E46 Unspecified protein-calorie malnutrition; I95.9 Hypotension, unspecified; I13.0 Hypertensive heart and chronic kidney disease with heart failure and stage 1 through stage 4 chronic kidney disease, or unspecified chronic kidney disease; F03.90 Unspecified dementia, unspecified severity, without behavioral disturbance, psychotic disturbance, mood disturbance, and anxiety; E87.1 Hypo-osmolality and hyponatremia; J44.1 Chronic obstructive pulmonary disease with (acute) exacerbation; N39.0 Urinary tract infection, site not specified; J96.22 Acute and chronic respiratory failure with hypercapnia; I25.10 Atherosclerotic heart disease of native coronary artery without angina pectoris; K21.9 Gastro-esophageal reflux disease without esophagitis; Z68.33 Body mass index [BMI] 33.0-33.9, adult; N18.9 Chronic kidney disease, unspecified; Z86.73 Personal history of transient ischemic attack (TIA), and cerebral infarction without residual deficits; Z99.81 Dependence on supplemental oxygen; M81.0 Age-related osteoporosis without current pathological fracture; D63.8 Anemia in other chronic diseases classified elsewhere; G43.909 Migraine, unspecified, not intractable, without status migrainosus; E78.5 Hyperlipidemia, unspecified; K59.00 Constipation, unspecified; G89.29 Other chronic pain; M54.5 Low back pain; M19.90 Unspecified osteoarthritis, unspecified site; G47.33 Obstructive sleep apnea (adult) (pediatric); R53.1 Weakness; R53.81 Other malaise; B96.89 Other specified bacterial agents as the cause of diseases classified elsewhere; G44.209 Tension-type headache, unspecified, not intractable
CPT/HCPCS: 36415; 36600; 71045-TC; 80048-TC; 80053-TC; 80076-TC; 82803-TC; 83540-TC; 83735-TC; 83880; 84100-TC; 84443-TC; 84484-TC; 85025-TC; 85378-TC; 85730-TC; 87081-TC; 87086-TC; 87186-TC; 93307-TC; 93970-TC; 94799-TC; A4216; A4606; J1650; J1956; J7050; Z7610

== ENCOUNTER 2017-12-12 10:33 | Inpatient (IN) | payer MEDICAID, MEDICARE ==
[2017-12-12] VITALS (18 sets, daily range): BP systolic 90–153; BP diastolic 40–79
[~2017-12-12] VITALS: Ht 152.4 cm; Wt 68.9 kg
[~2017-12-12 10:33] MED LIST changes: +ALBU18HF2 IH; +ALBU2.5V13 NEB; -AMLO10TA6 PO; +ATOR10TA PO; +BUDE10.2 IH; +BUDESONIDE IH; +FENO134C PO; +FENOFIBRATE MICRONIZED PO; +FOLI1TAB16 PO; +FORMOTEROL FUMARATE IH; +FURO-144 PO; -MAG1TAB.8 PO; +MELO-107 PO; +MELO7.5T12 PO; -MONT10TA22 PO; +OMEP20CA10 PO; +PANT40TA2 PO; +POTA8TAB8 PO; +RANO500T3 PO; +RANOLAZINE PO; +SPIR25TA PO; +SPIR25TA6 PO
--- NOTE | 2017-12-12 10:43 | NUR ---
DOMINGUEZ FROM HOME DT WEAKNESS AND DIZZINESS THIS MORNING, PATIENT IS AWAKE. APPEARS NOT IN DISTRESS. ON O2 VIA NC @3LPM. SKIN IS WARM TO TOUCH AND NON DIAPHORETIC. PATIENT IS AFEBRILE. VSS
--- NOTE | 2017-12-12 10:50 | NUR ---
PT 84% ON ROOM AIR, SOB, LABORED, RETRACTIONS. RT AT BEDSIDE.
[2017-12-12] MEDS ORDERED: FUROSEMIDE 100 MG/10 ML VIAL ONE (10:51)
[2017-12-12] MEDS ORDERED: methylPREDNISolone SOD SUCC 125 MG/2ML VIAL ONE (10:51)
[2017-12-12] MEDS ORDERED: ALBUTEROL FS 2.5 MG/3 ML VIAL.NEB ONE ×2 (10:54→11:08)
[2017-12-12] MEDS ORDERED: IPRATROPIUM NEB FS 0.5 MG/2.5 ML AMPUL.NEB ONE ×2 (10:54→11:08)
[2017-12-12] MEDS ORDERED: FUROSEMIDE 40 MG/4 ML VIAL IV ONE (11:00)
[2017-12-12] MEDS ORDERED: IPRATROPIUM NEB FS 0.5 MG/2.5 ML AMPUL.NEB NEB ONE (11:00)
[2017-12-12] MEDS ORDERED: ALBUTEROL FS 2.5 MG/3 ML VIAL.NEB NEB ONE (11:00)
[2017-12-12] MEDS ORDERED: methylPREDNISolone SOD SUCC 125 MG/2ML VIAL IV ONE (11:00)
[2017-12-12 11:07] LABS: ABG BASE EXCESS 9.4 mmol/L; ABG OXYGEN SATURATION 86.3 % (92.0-98.5); ABG PCO2 91.5 mmHg (35.0-45.0); ABG PH 7.247 (7.350-7.450); ABG PO2 63.1 mmHg (75.0-100.0); AaDO2 28.6 mmHg; COHb 0.7 % (0.5-1.5); MetHb 0.3 % (0.0-1.5); O2Hb 85.4 % (94.0-97.0); SITE, ABG Right Radial; VENT MODE, BG N/C
[2017-12-12 11:09] LABS: HEMOGLOBIN 9.4 g/dL (11.5-14.8); LYMPHOCYTES # (AUTO) 1.5 /CMM (0.8-4.8); MONOCYTES # (AUTO) 0.5 /CMM (0.1-1.30); NEUTROPHILS # (AUTO) 3.3 /CMM (1.8-8.9); PLATELET COUNT (AUTO) 235 /CMM (150-450)
[2017-12-12 11:11] LABS: BASOPHILS # (AUTO) 0.2 /CMM (0.0-0.2); BASOPHILS % (AUTO) 2.9 % (0.0-2.0); EOSINOPHILS % (AUTO) 1.2 % (0.0-6.0); HEMATOCRIT 30 % (33-45); LYMPHOCYTES % (AUTO) 26.9 % (20.0-44.0); MEAN CORPUSCULAR HEMOGLOBIN 29 PG (26.0-33.0); MEAN CORPUSCULAR HGB CONC 32 g/dl (31.0-36.0); MEAN CORPUSCULAR VOLUME 91 fL (82-100); MONOCYTES % (AUTO) 9.6 % (2.0-12.0); NEUTROPHILS % (AUTO) 59.4 % (43.0-81.0); RDW COEFFICIENT OF VARIATION 13.9 (11.5-15.0); RED BLOOD CELL COUNT(AUTO) 3.28 MIL/uL (4.0-5.2); WHITE BLOOD COUNT (AUTO) 5.6 K/uL (4.3-11.0)
--- NOTE | 2017-12-12 11:15 | NUR ---
DE LA O CATH INSERTED 16FR WITH IMMEDIATE DRAINAGE OF CLEAR YELLOW URINE TO GRAVITY.
[2017-12-12 11:17] LABS: CALCIUM, SERUM 8.4 mg/dL (8.5-10.1); CARBON DIOXIDE 39 mmol/L (21-32); CHLORIDE 96 mmol/L (98-107); CREATININE 2.2 mg/dL (0.6-1.3); GLUCOSE 91 mg/dL (74-106); SODIUM SERUM 132 mmol/L (136-145); UREA NITROGEN, BLOOD 38 mg/dL (7-18)
--- NOTE | 2017-12-12 11:19 | NUR ---
PLACED ON BIPAP PER MD WITH SETTINGS FOLLOWS: 15/5, RATE 12, FIO2 30%
[2017-12-12] MEDS ORDERED: ONDA8TAB6 PO (11:21)
[2017-12-12] MEDS ORDERED: CHOL50004 PO (11:21)
[2017-12-12] MEDS ORDERED: MEGE40TA PO (11:21)
[2017-12-12] MEDS ORDERED: MAGN400T26 PO (11:21)
[2017-12-12] MEDS ORDERED: SODI15OR8 PO (11:21)
[2017-12-12] MEDS ORDERED: CYAN500T4 PO (11:21)
[2017-12-12] MEDS ORDERED: LINA145C PO (11:21)
[2017-12-12 11:24] LABS: ALANINE AMINOTRANSFERASE 20 U/L (12-78); ALBUMIN 3.4 g/dL (3.4-5.0); ALKALINE PHOSPHATASE 48 U/L (46-116); ASPARTATE AMINOTRANSFERASE 28 U/L (15-37); BILIRUBIN,DIRECT 0.1 mg/dL (0.0-0.2); BILIRUBIN,TOTAL 0.2 mg/dL (0.2-1.0); LIPASE 193 U/L (73-393); TOTAL PROTEIN, SERUM 7.3 g/dL (6.4-8.2)
[2017-12-12 11:26] LABS: TROPONIN I < 0.017 ng/mL (0.00-0.056)
[2017-12-12 11:28] LABS: INR 0.94 (0.87-1.13)
--- NOTE | 2017-12-12 11:39 | NUR ---
PT PLACED ON BIPAP POST ABG PER MD ORDER INLINE HHN GIVEN. PT TOLERATING THERAPY WELL AT THIS TIME RN AND MD AWARE, ALARMS SET AND AUDIBLE WILL CONT. TO MONITOR
[2017-12-12 11:48] LABS: APPEARANCE,URINE Clear (CLEAR); BILIRUBIN,URINE Negative (NEGATIVE); BLOOD, URINE Trace-lysed Ery/uL (NEGATIVE); COLOR,URINE Yellow (YELLOW); KETONES,URINE Negative (NEGATIVE); LEUKOCYTE ESTERASE ,URINE Negative (NEGATIVE); NITRITE, URINE Negative (NEGATIVE); PROTEIN,URINE Negative (NEGATIVE); UGLUCOSE Negative (NEGATIVE); UROBILINOGEN,URINE 0.2 EU/dL (0.2)
[2017-12-12 11:54] LABS: BACTERIA,URINE Few /HPF (None Seen); SQUAMOUS EPITHELIAL CELL,UR Few /HPF (None Seen); WBC,URINE 0-2 /HPF (0-3)
--- NOTE | 2017-12-12 12:05 | NUR ---
CALLED RT FOR REPEAT ABG AT 1215
--- NOTE | 2017-12-12 12:15 | NUR ---
REPORT CALLED TO METALLOGRAPHER BEN FOR ADMISSION
--- NOTE | 2017-12-12 12:21 | NUR ---
DR THOMPSON AT BEDSIDE FOR PT EVAL
[2017-12-12 12:33] LABS: ABG BASE EXCESS 9.7 mmol/L; ABG OXYGEN SATURATION 91.7 % (92.0-98.5); ABG PCO2 69.9 mmHg (35.0-45.0); ABG PH 7.345 (7.350-7.450); ABG PO2 72.5 mmHg (75.0-100.0); AaDO2 59.3 mmHg; COHb 0.6 % (0.5-1.5); MetHb 0.3 % (0.0-1.5); O2Hb 90.9 % (94.0-97.0); SITE, ABG Right Radial; VENT MODE, BG bipap 15/5 RR12 30%
--- NOTE | 2017-12-12 12:39 | NUR ---
MARISA CALLED ITS DR. YIN
--- NOTE | 2017-12-12 12:44 | NUR ---
VERIFIED WITH DR CORDOVA THAT O2 SAT 90-92% IS SUFFICIENT; MD AND RN TO BEDSIDE FOR EVAL. OK PER MD; NO CHANGES TO BIPAP INDICATED.
--- NOTE | 2017-12-12 13:10 | NUR ---
TRANSPORTED TO ICU RM 259 IN CRITICAL CONDITION VIA ACLS PROTOCOL WITH RT
--- NOTE | 2017-12-12 13:45 | NUR ---
PT. TRANSFERRED FROM ER TO 259, USE SAME BIPAP MACHINE WITH FF. PARAMETERS ORDER: IPAP 15, EPAP 5, RATE 12, FIO2 30%. BREATH SOUNDS DIMINISHED BILATERAL. Addendum: 12/12/17 at 1349 by GHADA NICHOLAS RT Amended: Links added.
--- NOTE | 2017-12-12 13:48 | NUR ---
CALLED DR HALL, WAS PAGED.
--- NOTE | 2017-12-12 13:51 | NUR ---
SET AND EXHIBIT DESIGNER RECEIVED PATIENT FROM ER ON A GURNEY. ALERT AND AWAKE. YORUBA SPEAKING. ORIENTED TO PERSON AND PLACE. FAMILY AWARE OF THE ADMISSION. STABLE VITAL SINGS. PLACED ON BIPAP. CLOSELY MONITORED. WILL CONTINUE TO MONITOR AND PROVIDE CARE.
[2017-12-12] MEDS: ALBUTEROL HALF STRENGTH 1.25 MG/3 ML VIAL.NEB NEB SCH ×4 (14:00→22:44)
[2017-12-12] MEDS ORDERED: ENOXAPARIN SODIUM 40 MG/0.4 ML DISP.SYRIN SQ SCH (14:00)
[2017-12-12] MEDS: methylPREDNISolone SOD SUCC 125 MG/2ML VIAL IV SCH ×2 (14:22→21:15)
[2017-12-12] MEDS: HEPARIN SODIUM, PORCINE 5000 UNITS/1 ML VIAL SQ SCH ×2 (14:22→21:15)
[2017-12-12] MEDS: IPRATROPIUM NEB FS 0.5 MG/2.5 ML AMPUL.NEB NEB SCH ×3 (15:08→22:43)
[2017-12-12] MEDS: FUROSEMIDE 40 MG/4 ML VIAL IV SCH (16:47)
[2017-12-12] MEDS ORDERED: FUROSEMIDE 40 MG/4 ML VIAL IV SCH (17:00)
--- NOTE | 2017-12-12 19:00 | NUR ---
Recieved patient on BIPAP,awake,alert,follows simp[le commands,not in any distress.Does not speak Algerian but seems to be coherent and appropriate.Tolerating BIPAP well,compliant.Comfort care done,needs attended.
--- NOTE | 2017-12-12 19:43 | NUR ---
Received pt on BIPAP, pt is tolerating settings well no sob or distress noted at this time. Addendum: 12/12/17 at 1943 by EVELIN JAIMES RT Amended: Links added.
[2017-12-13] VITALS (38 sets, daily range): BP systolic 96–156; BP diastolic 53–108
--- NOTE | 2017-12-13 00:05 | NUR ---
Remains stable,asleep,easily awakens ,still using BIPAP,not in any distress.Comfort care done,needs attended.Will closely monitor O2 saturation.occasionally desaturates to low 80's but goes back up into the 90"s when awakens.Denies any SOB,no sign of distress.
[2017-12-13] MEDS: ALBUTEROL HALF STRENGTH 1.25 MG/3 ML VIAL.NEB NEB SCH ×6 (02:54→23:45)
[2017-12-13] MEDS: IPRATROPIUM NEB FS 0.5 MG/2.5 ML AMPUL.NEB NEB SCH ×6 (02:54→23:45)
--- NOTE | 2017-12-13 04:00 | NUR ---
Remains stable,still on BIPAP,tolerating well.AMcare done.
[2017-12-13] MEDS: HEPARIN SODIUM, PORCINE 5000 UNITS/1 ML VIAL SQ SCH ×3 (05:28→21:55)
[2017-12-13] MEDS: methylPREDNISolone SOD SUCC 125 MG/2ML VIAL IV SCH ×3 (05:29→21:55)
--- NOTE | 2017-12-13 07:00 | NUR ---
Remains stable,still in BIPAP.Report given to Sarah SUTHERLAND
--- NOTE | 2017-12-13 07:46 | NUR ---
INITIAL PROPOSAL MANAGER WRITER NOTE RCVD PT RESTING IN BED, AROUSED TO LIGHT TOUCH, ON BIPAP TOLERATING WELL. SR ON TELE. DE LA O TO GRAVITY DRAINING CLEAR,PALE, YELLOW URINE IV SITES C/D/I/PATENT. NO S/O DISTRESS OBSERVED UPON FLUSHING. PT REMAINS NPO. WILL CONTINUE TO MONITOR PT FOR SAFETY AND COMFORT. CALL LIGHT WITHIN REACH. BED IN LOW AND LOCKED POSITION.
[2017-12-13 08:27] LABS: BASOPHILS % (AUTO) 0.2 % (0.0-2.0); HEMATOCRIT 31 % (33-45); HEMOGLOBIN 9.8 g/dL (11.5-14.8); LYMPHOCYTES # (AUTO) 0.7 /CMM (0.8-4.8); LYMPHOCYTES % (AUTO) 13.7 % (20.0-44.0); MEAN CORPUSCULAR HEMOGLOBIN 29 PG (26.0-33.0); MEAN CORPUSCULAR HGB CONC 32 g/dl (31.0-36.0); MEAN CORPUSCULAR VOLUME 93 fL (82-100); MONOCYTES # (AUTO) 0.1 /CMM (0.1-1.30); MONOCYTES % (AUTO) 2.2 % (2.0-12.0); NEUTROPHILS % (AUTO) 83.9 % (43.0-81.0); PLATELET COUNT (AUTO) 247 /CMM (150-450); RDW COEFFICIENT OF VARIATION 14.9 (11.5-15.0); RED BLOOD CELL COUNT(AUTO) 3.35 MIL/uL (4.0-5.2); WHITE BLOOD COUNT (AUTO) 4.7 K/uL (4.3-11.0)
[2017-12-13] MEDS: FUROSEMIDE 40 MG/4 ML VIAL IV SCH ×2 (08:38→17:22)
[2017-12-13 08:45] LABS: CALCIUM, SERUM 8.9 mg/dL (8.5-10.1); CHLORIDE 97 mmol/L (98-107); GLUCOSE 124 mg/dL (74-106); POTASSIUM 4.8 mmol/L (3.5-5.1); SODIUM SERUM 140 mmol/L (136-145); UREA NITROGEN, BLOOD 37 mg/dL (7-18)
[2017-12-13 08:50] LABS: CARBON DIOXIDE 40 mmol/L (21-32)
--- NOTE | 2017-12-13 11:28 | NUR ---
RT NOTE RECEIVED PT ON BIPAP. PT AWAKE AND ALERT. SETTINGS PRESCRIBED. ALARMS SET PER PROTOCOL AND AUDIBLE. BIPAP PLUGGED IN TO RED OUTLET. AMBU BAG AT BED SIDE. NO DISTRESS NOTED AT MOMENT. Addendum: 12/13/17 at 1130 by AMY BURNETT RT Amended: Links added.
[2017-12-13 13:36] LABS: ABG BASE EXCESS 14.8 mmol/L; ABG OXYGEN SATURATION 91.1 % (92.0-98.5); ABG PCO2 75.8 mmHg (35.0-45.0); ABG PO2 68.5 mmHg (75.0-100.0); AaDO2 202.7 mmHg; COHb 0.4 % (0.5-1.5); O2Hb 90.7 % (94.0-97.0); SITE, ABG Left Radial; VENT MODE, BG Bipap 15/5 50% RR12
--- NOTE | 2017-12-13 13:50 | NUR ---
IT DESKTOP SUPPORT TECHNICIAN NOTE PT'S DAUGHTER IN [place] AT BEDSIDE UPDATED ON PT'S CONDITION. QUESTIONS ANSWERED TO HER SATISFACTION. WILL CONTINUE TO MONITOR.
--- NOTE | 2017-12-13 18:32 | NUR ---
MANAGER BOOKS NOTE PT REMAINS STABLE ON BIPAP TOLERATING WELL. SR ON TELE. DE LA O TO GRAVITY DRAINING CLEAR, YELLOW URINE. IV SITES C/D/I/PATENT. NO S/O INFILTRATION/PHLEBITIS OBSERVED UPON FLUSHING. BED IN LOW AND LOCKED POSITION. CALL LIGHT WITHIN REACH. PT'S CARE WILL BE ENDORSED TO CREAM CHEESE MAKER RN FOR CONTINUITY OF CARE.
--- NOTE | 2017-12-13 19:46 | NUR ---
RECEIVED PT ON BIPAP 15 /5, RATE 12, FIO2 50%. PT AWAKE AND ALERT. BREATHING TX GIVEN ORDERED. NO ADVERSE REACTION NOTED. ALARMS SET AND AUDIBLE. BIPAP PLUGGED IN TO RED OUTLET. AMBU BAG AT BED SIDE. NO RESPIRATORY DISTRESS NOTED AT THIS TIME.
--- NOTE | 2017-12-13 20:00 | NUR ---
GRIPS NOTE RECEIVED PATIENT SLEEPING COMFORTABLY, AROUSABLE WITH VERBAL AND TACTILE STIMULI. PATIENT ON BIPAP, 15/5 AT 50% FIO2, TOLERATING WELL. NO DISTRESS. VSS. SR ON TELE WITH HR IN THE 70s. PIV ON L AND R HAND, FLUSHED, PATENT WITH NO SIGNS OF INFILTRATION, SL. F/C TO GRAVITY, DRAINING WELL WITH CLEAR, PALE, YELLOW URINE. NEEDS ANTICIPATED AND MET. SAFETY AND COMFORT ENSURED. BED IN LOW AND LOCKED POSITION. CALL LIGHT IN REACH. WILL CONTINUE TO MONITOR.
[2017-12-14] VITALS (36 sets, daily range): BP systolic 112–156; BP diastolic 50–98
[2017-12-14] MEDS: ALBUTEROL HALF STRENGTH 1.25 MG/3 ML VIAL.NEB NEB SCH ×6 (03:48→23:35)
[2017-12-14] MEDS: IPRATROPIUM NEB FS 0.5 MG/2.5 ML AMPUL.NEB NEB SCH ×6 (03:48→23:35)
[2017-12-14] MEDS: methylPREDNISolone SOD SUCC 125 MG/2ML VIAL IV SCH ×3 (04:44→21:06)
[2017-12-14] MEDS: HEPARIN SODIUM, PORCINE 5000 UNITS/1 ML VIAL SQ SCH ×3 (04:44→21:29)
--- NOTE | 2017-12-14 06:41 | NUR ---
CHAUFFEUR NOTE Patient with no acute distress observed overnight. Patient is more alert and oriented. Patient maintained on BiPAP and tolerating settings well. Patient however was observed to desaturate fairly quickly when BiPAP was removed during assistance with AM care. CN made aware. Patient's needs anticipated and met. Safety and comfort ensured. F/C kept intact. PIV intact and patent. Call light in reach. Will endorse accordingly.
--- NOTE | 2017-12-14 07:27 | NUR ---
INITIAL HOUSING DIRECTOR NOTE RCVD PT SLEEPING, EASILY AROUSED TO TOUCH, SR ON TELE, TOLERATING BIPAP WELL. NO S/O DISTRESS/PAIN OBSERVED UPON ASSESSMENT. DE LA O TO GRAVITY DRAINING CLEAR, YELLOW URINE. IV SITES C/D/I/PATENT. NO S/O INFILTRATION/PHLEBITIS OBSERVED UPON FLUSHING. WILL CONTINUE TO MONITOR PT FOR SAFETY AND COMFORT. CALL LIGHT WITHIN REACH. BED IN LOW AND LOCKED POSITION.
--- NOTE | 2017-12-14 07:30 | NUR ---
B2B SALES CONSULTANT NOTE DR. GOFF CONTACTED TO COME AND SEE PT. WILL F/U.
[2017-12-14 08:10] LABS: ABG BASE EXCESS 14.9 mmol/L; ABG OXYGEN SATURATION 93.7 % (92.0-98.5); ABG PCO2 73.5 mmHg (35.0-45.0); ABG PH 7.383 (7.350-7.450); ABG PO2 83.4 mmHg (75.0-100.0); AaDO2 190.4 mmHg; COHb 0.3 % (0.5-1.5); O2Hb 93.4 % (94.0-97.0); SITE, ABG Left Radial
--- NOTE | 2017-12-14 11:02 | NUR ---
MOTOR GRADER ROUGH GRADE NOTE PT'S DAUGHTER IN [place] AT BEDSIDE UPDATED ON PT'S CONDITION, QUESTIONS ENCOURAGED AND ANSWERED TO HER SATISFACTION. DR. RIVAS IN UNIT ASSESSED PT RECOMMENDED TO CONTINUE WITH THE CURRENT SETTINGS AFTER REVIEWING ABG RESULTS.
[2017-12-14 11:33] LABS: BASOPHILS % (AUTO) 0.6 % (0.0-2.0); HEMATOCRIT 34 % (33-45); HEMOGLOBIN 10.3 g/dL (11.5-14.8); LYMPHOCYTES # (AUTO) 0.7 /CMM (0.8-4.8); LYMPHOCYTES % (AUTO) 10.6 % (20.0-44.0); MEAN CORPUSCULAR HEMOGLOBIN 28 PG (26.0-33.0); MEAN CORPUSCULAR HGB CONC 31 g/dl (31.0-36.0); MEAN CORPUSCULAR VOLUME 92 fL (82-100); MONOCYTES # (AUTO) 0.2 /CMM (0.1-1.30); MONOCYTES % (AUTO) 3.1 % (2.0-12.0); NEUTROPHILS # (AUTO) 5.6 /CMM (1.8-8.9); NEUTROPHILS % (AUTO) 85.7 % (43.0-81.0); PLATELET COUNT (AUTO) 274 /CMM (150-450); RDW COEFFICIENT OF VARIATION 14.6 (11.5-15.0); RED BLOOD CELL COUNT(AUTO) 3.66 MIL/uL (4.0-5.2); WHITE BLOOD COUNT (AUTO) 6.5 K/uL (4.3-11.0)
[2017-12-14 12:16] LABS: CALCIUM, SERUM 9.1 mg/dL (8.5-10.1); CARBON DIOXIDE 37 mmol/L (21-32); CHLORIDE 97 mmol/L (98-107); CREATININE 1.8 mg/dL (0.6-1.3); GLUCOSE 124 mg/dL (74-106); MAGNESIUM 3.2 mg/dL (1.8-2.4); PHOSPHORUS 3.6 mg/dL (2.5-4.9); POTASSIUM 4.7 mmol/L (3.5-5.1); SODIUM SERUM 140 mmol/L (136-145); UREA NITROGEN, BLOOD 48 mg/dL (7-18)
--- NOTE | 2017-12-14 18:49 | NUR ---
VISUAL TRAINING AIDE NOTE PT REMAINS ON BIPAP TOLERATING WELL. VITAL SIGNS STABLE, STILL NPO. ORAL CARE PROVIDED. SR ON MONITOR. DE LA O TO GRAVITY DRAINING CLEAR, YELLOW URINE. IV SITES C/D/I/PATENT. NO S/P INFILTRATION/PHLEBITIS OBSERVED. PT'S CARE WILL BE ENDORSED TO MINE WEDGE SAWYER RN FOR CONTINUITY OF CARE. BED IN LOW AND LOCKED POSITION. CALL LIGHT WITHIN REACH.
--- NOTE | 2017-12-14 18:52 | NUR ---
CAMP HOUSEKEEPER NOTE NO ANSWER FROM DR. GOFF DURING SHIFT. RJ ALBA AWARE.
--- NOTE | 2017-12-14 19:44 | NUR ---
FINANCIAL WELLNESS COACH INITIAL NOTE RCVD PT , AWAKE ASKING TO DRINK WATER, D/T DRY MOUTH, MOISTURIZED, WITH ICE CHIPS, SR ON TELE, TOLERATING BIPAP WELL. NO S/O DISTRESS/PAIN OBSERVED UPON ASSESSMENT. DE LA O TO GRAVITY DRAINING CLEAR, YELLOW URINE. IV SITES C/D/I/PATENT. NO S/O INFILTRATION/PHLEBITIS OBSERVED UPON FLUSHING. WILL CONTINUE TO MONITOR PT FOR SAFETY AND COMFORT. CALL LIGHT WITHIN REACH. BED IN LOW AND LOCKED POSITION.
[2017-12-15] VITALS (31 sets, daily range): BP systolic 113–149; BP diastolic 60–106
[2017-12-15] MEDS: IPRATROPIUM NEB FS 0.5 MG/2.5 ML AMPUL.NEB NEB SCH ×6 (03:15→23:47)
[2017-12-15] MEDS: ALBUTEROL HALF STRENGTH 1.25 MG/3 ML VIAL.NEB NEB SCH ×6 (03:15→23:47)
[2017-12-15 04:33] LABS: EOSINOPHILS % (AUTO) 0.1 % (0.0-6.0); HEMATOCRIT 34 % (33-45); HEMOGLOBIN 10.7 g/dL (11.5-14.8); LYMPHOCYTES # (AUTO) 0.7 /CMM (0.8-4.8); LYMPHOCYTES % (AUTO) 10.2 % (20.0-44.0); MEAN CORPUSCULAR HEMOGLOBIN 29 PG (26.0-33.0); MEAN CORPUSCULAR HGB CONC 31 g/dl (31.0-36.0); MEAN CORPUSCULAR VOLUME 93 fL (82-100); MONOCYTES # (AUTO) 0.3 /CMM (0.1-1.30); MONOCYTES % (AUTO) 3.8 % (2.0-12.0); NEUTROPHILS # (AUTO) 5.8 /CMM (1.8-8.9); NEUTROPHILS % (AUTO) 85.9 % (43.0-81.0); PLATELET COUNT (AUTO) 277 /CMM (150-450); RDW COEFFICIENT OF VARIATION 14.8 (11.5-15.0); RED BLOOD CELL COUNT(AUTO) 3.69 MIL/uL (4.0-5.2); WHITE BLOOD COUNT (AUTO) 6.8 K/uL (4.3-11.0)
[2017-12-15 04:49] LABS: CALCIUM, SERUM 9.4 mg/dL (8.5-10.1); CHLORIDE 98 mmol/L (98-107); CREATININE 1.8 mg/dL (0.6-1.3); GLUCOSE 124 mg/dL (74-106); MAGNESIUM 3.6 mg/dL (1.8-2.4); PHOSPHORUS 4.1 mg/dL (2.5-4.9); POTASSIUM 4.7 mmol/L (3.5-5.1); SODIUM SERUM 139 mmol/L (136-145); UREA NITROGEN, BLOOD 55 mg/dL (7-18)
[2017-12-15 04:51] LABS: CARBON DIOXIDE 40 mmol/L (21-32)
[2017-12-15] MEDS: methylPREDNISolone SOD SUCC 125 MG/2ML VIAL IV SCH ×3 (04:57→20:09)
[2017-12-15] MEDS: HEPARIN SODIUM, PORCINE 5000 UNITS/1 ML VIAL SQ SCH ×3 (05:03→20:10)
--- NOTE | 2017-12-15 06:57 | NUR ---
ICU CLOSING NOTE ENDORSED PT STABLE, AWAKE IN BED CONSTANTLY C/O ORAL DRYNESS, GIVEN SIPS OF WATER, [place], CO2 40H, ALL NEEDS MET, WILL ENDORSE TO AM SHIFT RN TO CONT TO MONITOR.
--- NOTE | 2017-12-15 07:12 | NUR ---
RN INITIAL NOTES: Rec'd pt on bed, not in any distress, A/O x1. On BIPAP, sating at 96%. On telemonitor, SR 75bpm. Has 2 IV line access: L hand G20, SL and R hand G20 SL, both lines no s/sx of infection/infiltration. Has FC draining to BSB. Provided comfort & safety measures. Bed kept low & in locked pos. Call light placed w/in reach. Will cont to monitor & attend pt needs.
[2017-12-15] MEDS ORDERED: BUMETANIDE INJ 0.25 MG/ML VIAL IV ONE (08:30)
--- NOTE | 2017-12-15 08:30 | NUR ---
Pt off Bipap, placed on O2 2lpm at MA, sating at 96% at this time. Will cont to monitor closely.
--- NOTE | 2017-12-15 11:00 | NUR ---
Pt seen & examined by Dr. Obando. Per , re: diet - to order for swallow eval.
--- NOTE | 2017-12-15 13:00 | NUR ---
Per Dr. Obando may start on clear liquid diet.
--- NOTE | 2017-12-15 16:30 | NUR ---
CN able to talk to Dr. Sanchez over the phone re: PCP.
--- NOTE | 2017-12-15 18:24 | NUR ---
RN INITIAL NOTES: No acute changes noted w/in shift. Pt tolerated off BIPAP, current at NC/2lpm, no SOB. On telemonitor, still SR. 2 IV line access: L hand G20, SL and R hand G20 SL, both lines no s/sx of infection/infiltration. FC draining to BSB. Kept well rested. Needs attended. Bed kept low & in locked pos. Call light placed w/in reach. Will endorse to PM RN for NEIL.
--- NOTE | 2017-12-15 20:00 | NUR ---
GRAIN CLEANER - NOTES - RCVD PT AWAKE, SR ON TELE, TOLERATING 2L NC WELL. NO S/O DISTRESS/PAIN OBSERVED UPON ASSESSMENT. DE LA O TO GRAVITY DRAINING CLEAR, YELLOW URINE. R HAND 22G AND LEFT HAND 20G IV SITES C/D/I/PATENT. NO S/O INFILTRATION/PHLEBITIS OBSERVED UPON FLUSHING. WILL CONTINUE TO MONITOR PT FOR SAFETY AND COMFORT. CALL LIGHT WITHIN REACH. BED IN LOW AND LOCKED POSITION.
--- NOTE | 2017-12-15 22:00 | NUR ---
PT PLACED ON BIPAP BY RT
[2017-12-16] VITALS (18 sets, daily range): BP systolic 105–152; BP diastolic 60–92
[2017-12-16] MEDS: IPRATROPIUM NEB FS 0.5 MG/2.5 ML AMPUL.NEB NEB SCH ×7 (03:21→23:30)
[2017-12-16] MEDS: ALBUTEROL HALF STRENGTH 1.25 MG/3 ML VIAL.NEB NEB SCH ×7 (03:21→23:30)
[2017-12-16] MEDS: HEPARIN SODIUM, PORCINE 5000 UNITS/1 ML VIAL SQ SCH ×3 (05:11→21:57)
[2017-12-16] MEDS: methylPREDNISolone SOD SUCC 125 MG/2ML VIAL IV SCH (05:11)
--- NOTE | 2017-12-16 07:30 | NUR ---
MEAT PRODUCTS DEMONSTRATOR INITIAL NOTES: PATIENT RESTING IN BED. NONLABORED BREATHING NOTED ON 2 L NASAL CANNULA. RESPONDING TO NAME AND TOUCH. CLEAR SPEECH NOTED, ABLE TO FOLLOW COMMAND. PATIENT ICELANDIC SPEAKING PER REPORT. SR ON TELE MONITOR WITH HR OF 77. NO FACIAL GRIMACING NOTED. DE LA O CATHETER DRAINING CLEAR YELLOW URINE. RIGHT HAND GAUGE 22 PATENT AND INTACT. LEFT HAND GAUGE 20 PATENT AND INTACT. ASPIRATION AND FALL PRECAUTIONS IMPLEMENTED. BED IN LOWEST LOCKED POSITION. CALL LIGHT WITHIN REACH.
--- NOTE | 2017-12-16 08:30 | NUR ---
DR SNOWDEN NOTIFIED THAT HOME MEDICATIONS ARE NOT RECONCILED YET. NO ORDER TO CONTINUE HOME MEDS FROM
--- NOTE | 2017-12-16 09:33 | NUR ---
SWALLOW EVAL DONE BY ST THERAPIST PER HER RECOMMENDATIONS, PUREED DIET WITH NECTAR THICK LIQUIDS. DIET ORDERED
--- NOTE | 2017-12-16 10:32 | NUR ---
TRANSFER TO [facility] PATIENT TRANSFERRED TO 117-1 ALL BELONGINGS WITH PATIENT. SON NOTIFIED OF TRANSFER PATIENT REMAINED SR ON TELE MONITOR THROUGHOUT SHIFT. NONLABORED BREATHING NOTED ON 2 L NASAL CANNULA. IV SITES INTACT. DE LA O CATHETER INTACT, NO ORDERS TO REMOVE IT. BED PLACED IN LOWEST LOCKED POSITION. CALL LIGHT WITHIN REACH REPORT GIVEN TO JEANIE ROMERO
--- NOTE | 2017-12-16 10:35 | NUR ---
RN BERTRAND NOTES RECIEVED REPORT AND PATIENT FROM ICU NURSE PER, PATIENT A&O X3 [place] SOME, ON TELE MON SR 85, DE LA O CATH DRAINING URINE VIA GRAVITY, LEFT HAND 20 G IV SITE INTACT AND PATENT NO INFILTRATION NOTED, ON 2L NC SAT ABOVE 97% NO SOB WILL CONTINUE CARE.
--- NOTE | 2017-12-16 11:33 | NUR ---
RN BERTRAND NOTES HOME MEDICATION RECONCILIATION LIST PLACED INSIDE CHART, DR BENITEZ AWARE NEEDS TO CHECK OFF LIST WHEN ABLE.
--- NOTE | 2017-12-16 11:42 | NUR ---
RN BERTRAND NOTES IF NEEDED TO CONTACT MAGGIE CARRERA CALL [phone].
[2017-12-16] MEDS: FUROSEMIDE 40 MG TABLET PO SCH (12:35)
[2017-12-16] MEDS: ASPIRIN 81 MG TAB.CHEW PO SCH (12:35)
--- NOTE | 2017-12-16 18:26 | NUR ---
RN BERTRAND ENDING NOTES PATIENT RESTING IN BED WITH NO ACUTE DISTRESS NOTED. ALL DUE MEDS GIVEN, ALL NEEDS MET, WILL CONTINUE CARE, PT STABLE NO CHANGES NOTED.
--- NOTE | 2017-12-16 20:00 | NUR ---
RN INITIAL NOTES RECEIVED PATIENT RESTING IN BED , PATIENT A&O X3, ON TELE MON SR 85, DE LA O CATH DRAINING URINE VIA GRAVITY, LEFT HAND 20 G IV SITE INTACT AND PATENT NO INFILTRATION NOTED, ON 2L NC SAT ABOVE 97%, NO SOB ,WILL CONTINUE CARE.
[2017-12-16] MEDS: ATORVASTATIN 10 MG TABLET PO SCH (21:57)
--- NOTE | 2017-12-16 22:50 | NUR ---
pt placed on bipap per md order pt placed on noc bipap. pt awake alert ambu bag bedside. alarms set and audible, disconnect alarms checked plugged into red outlet pt receiving breathing tx q4 at this time. pt hob at 30 degrees. Addendum: 12/16/17 at 2251 by ROCK LLANOS RT Amended: Links added.
[2017-12-17] VITALS: BP 122/71
--- NOTE | 2017-12-17 01:00 | NUR ---
RN NOTES PT REMOVED BIPAP MASK SEVERAL TIMES, MASK WAS REPLACED BUY RT AND NURSING STAFF SEVERAL TIMES AT 0100 PT REMOVED MASK AND REFUSED TO HAVE IT REATTACHED. RN REPLACED MASK WITH NC 2L, PTS O2 SATS 95% ON NC 2L.
[2017-12-17] MEDS: ALBUTEROL HALF STRENGTH 1.25 MG/3 ML VIAL.NEB NEB SCH ×5 (01:13→19:54)
[2017-12-17] MEDS: IPRATROPIUM NEB FS 0.5 MG/2.5 ML AMPUL.NEB NEB SCH ×5 (01:13→19:54)
--- NOTE | 2017-12-17 01:15 | NUR ---
pt unable to tolerate bipap. removed from bipap by pt. pt resting comfortable. no resp distress noted Addendum: 12/17/17 at 0116 by ROCK LLANOS RT Amended: Links added.
[2017-12-17 04:00] VITALS: BP 126/72
[2017-12-17] MEDS: HEPARIN SODIUM, PORCINE 5000 UNITS/1 ML VIAL SQ SCH ×3 (05:00→21:36)
--- NOTE | 2017-12-17 06:47 | NUR ---
RN CLOSING NOTES PATIENT RESTING IN BED WITH NO ACUTE DISTRESS NOTED. PT STABLE NO CHANGES NOTED. ALL DUE MEDS GIVEN, ALL NEEDS MET, WILL ENDORSE TO AM FOR NEIL.
[2017-12-17 07:01] LABS: ALANINE AMINOTRANSFERASE 15 U/L (12-78); ALKALINE PHOSPHATASE 36 U/L (46-116); ASPARTATE AMINOTRANSFERASE 22 U/L (15-37); BILIRUBIN,TOTAL 0.4 mg/dL (0.2-1.0); CALCIUM, SERUM 8.3 mg/dL (8.5-10.1); CARBON DIOXIDE 37 mmol/L (21-32); CHLORIDE 97 mmol/L (98-107); CREATININE 1.5 mg/dL (0.6-1.3); GLUCOSE 96 mg/dL (74-106); MAGNESIUM 2.6 mg/dL (1.8-2.4); POTASSIUM 3.3 mmol/L (3.5-5.1); SODIUM SERUM 138 mmol/L (136-145); TOTAL PROTEIN, SERUM 6.5 g/dL (6.4-8.2); UREA NITROGEN, BLOOD 36 mg/dL (7-18)
[2017-12-17 07:05] LABS: IRON, SERUM 49 ug/dl (50-175)
--- NOTE | 2017-12-17 07:10 | NUR ---
BERTRAND RN OPENING NOTES RECEIVED REPOT FROM PM NURSE, PATIENT RESTING IN BED ,EASILY AROUSABLE , ON TELE MON SR75, DE LA O CATH DRAINING URINE VIA GRAVITY, LEFT HAND 20 G IV SITE INTACT AND PATENT NO INFILTRATION NOTED, ON 2L NC , NO SOB ,NO DISTRESS NOTED AT THIS TIME .BED IS LOCKED AND IN LOW POSITION.CALL LIGHT IN REACH.SRX3.WILL CONTINUE TO MONITOR..
[2017-12-17 07:48] LABS: BASOPHILS # (AUTO) 0.1 /CMM (0.0-0.2); BASOPHILS % (AUTO) 0.8 % (0.0-2.0); EOSINOPHILS % (AUTO) 0.2 % (0.0-6.0); HEMATOCRIT 34 % (33-45); LYMPHOCYTES # (AUTO) 2.3 /CMM (0.8-4.8); MEAN CORPUSCULAR HEMOGLOBIN 30 PG (26.0-33.0); MEAN CORPUSCULAR HGB CONC 33 g/dl (31.0-36.0); MEAN CORPUSCULAR VOLUME 91 fL (82-100); MONOCYTES # (AUTO) 0.9 /CMM (0.1-1.30); MONOCYTES % (AUTO) 9.3 % (2.0-12.0); NEUTROPHILS # (AUTO) 5.9 /CMM (1.8-8.9); NEUTROPHILS % (AUTO) 64.7 % (43.0-81.0); PLATELET COUNT (AUTO) 239 /CMM (150-450); RDW COEFFICIENT OF VARIATION 14.1 (11.5-15.0); WHITE BLOOD COUNT (AUTO) 9.2 K/uL (4.3-11.0)
[2017-12-17 08:00] VITALS: BP 117/81
[2017-12-17] MEDS: ASPIRIN 81 MG TAB.CHEW PO SCH (08:32)
[2017-12-17] MEDS: FUROSEMIDE 40 MG TABLET PO SCH (08:32)
[2017-12-17] MEDS ORDERED: methylPREDNISolone SOD SUCC 125 MG/2ML VIAL IV SCH (09:00)
--- NOTE | 2017-12-17 09:19 | NUR ---
BERTRAND RN NOTES SEEN BY ,UPDATED PATIENT CONDITION,NOTIFIED LABS.GOT NEW ORDERS.
[2017-12-17] MEDS ORDERED: POTASSIUM CHLORIDE 10 MEQ TABLET.SA PO SCH (09:30)
[2017-12-17 12:00] VITALS: BP 129/78
[2017-12-17] MEDS: POTASSIUM CHLORIDE 20 MEQ POWDER PACKET PO SCH ×2 (12:07→16:39)
[2017-12-17] MEDS: predniSONE 20 MG TABLET PO SCH (14:30)
--- NOTE | 2017-12-17 15:04 | NUR ---
BERTRAND RN NOTES LEFT MESSAGE REGARDING CT CHEST RESULT TO .
[2017-12-17 16:00] VITALS: BP 128/77
--- NOTE | 2017-12-17 18:57 | NUR ---
BERTRAND RN CLOSING NOTES PATIENT RESTING IN BED AXOX2. ON TELE MON SR74, DE LA O CATH DRAINING URINE VIA GRAVITY, LEFT HAND 20 G IV SITE INTACT AND PATENT NO INFILTRATION NOTED, ON 2L NC , NO SOB ,NO DISTRESS NOTED DURING SHIFT .FAMILY AT BEDSIDE.ANSWERED ALL THE QUESTIONS.HAPPY ABOUT CARE.BED IS LOCKED AND IN LOW POSITION.CALL LIGHT IN REACH.SRX3.ENDORSED TO PM NURSE FOR NEIL.
[2017-12-17 20:00] VITALS: BP 129/75
[2017-12-17] MEDS: ATORVASTATIN 10 MG TABLET PO SCH (21:35)
[2017-12-18] VITALS: BP 117/69
[2017-12-18] MEDS: ALBUTEROL HALF STRENGTH 1.25 MG/3 ML VIAL.NEB NEB SCH ×4 (00:04→11:29)
[2017-12-18] MEDS: IPRATROPIUM NEB FS 0.5 MG/2.5 ML AMPUL.NEB NEB SCH ×4 (00:04→11:29)
[2017-12-18 04:00] VITALS: BP 127/79
[2017-12-18] MEDS: HEPARIN SODIUM, PORCINE 5000 UNITS/1 ML VIAL SQ SCH (06:11)
[2017-12-18 06:35] LABS: CALCIUM, SERUM 8.7 mg/dL (8.5-10.1); CARBON DIOXIDE 37 mmol/L (21-32); CHLORIDE 100 mmol/L (98-107); CREATININE 1.4 mg/dL (0.6-1.3); GLUCOSE 98 mg/dL (74-106); POTASSIUM 3.8 mmol/L (3.5-5.1); SODIUM SERUM 140 mmol/L (136-145); UREA NITROGEN, BLOOD 30 mg/dL (7-18)
--- NOTE | 2017-12-18 07:10 | NUR ---
BERTRAND RN OPENING NOTES RECEIVED REPOT FROM PM NURSE, PATIENT RESTING IN BED ,EASILY AROUSABLE , ON TELE MON SR73, DE LA O CATH DRAINING URINE VIA GRAVITY, LEFT HAND 20 G IV SITE INTACT AND PATENT NO INFILTRATION NOTED, ON 2L NC , NO SOB ,NO DISTRESS NOTED AT THIS TIME .BED IS LOCKED AND IN LOW POSITION.CALL LIGHT IN REACH.SRX3.WILL CONTINUE TO MONITOR..
[2017-12-18 08:00] VITALS: BP_SYST 135; BP_SYST 139; BP_DIAS 82; BP_DIAS 90
[2017-12-18] MEDS: ASPIRIN 81 MG TAB.CHEW PO SCH (08:14)
[2017-12-18] MEDS: predniSONE 20 MG TABLET PO SCH (08:14)
[2017-12-18] MEDS: FUROSEMIDE 40 MG TABLET PO SCH (08:14)
[2017-12-18] MEDS ORDERED: ASPI-1169 PO (08:21)
[2017-12-18] MEDS ORDERED: ALBU1.25 NEB (08:21)
[2017-12-18] MEDS ORDERED: ATOR10TA PO (08:21)
[2017-12-18] MEDS ORDERED: IPRA0.2S9 NEB (08:21)
[2017-12-18] MEDS ORDERED: PRED20TA PO (08:21)
[2017-12-18] MEDS ORDERED: POTA10TA10 PO (08:21)
[2017-12-18] MEDS ORDERED: FURO40TA5 PO (08:21)
[2017-12-18] MEDS ORDERED: POTA10CA43 PO (08:21)
--- NOTE | 2017-12-18 09:00 | NUR ---
BERTRAND RN NOTES SEEN BY UPDATED ABOUT PATIENT CONDITION.RELAYED LAB RESULT.GOT NEW ORDER FOR DISCHARGE AND LABS AND PODIATRY CONSULT.STATEMENT CLERKS SUPERVISOR MADE PHIPPS ABOUT [facility] PREFERENCE AND BIPAP NEEDS AT HOME.
[2017-12-18 09:04] LABS: ABG BASE EXCESS 6.8 mmol/L; ABG OXYGEN SATURATION 95.9 % (92.0-98.5); ABG PCO2 43.8 mmHg (35.0-45.0); ABG PO2 106.2 mmHg (75.0-100.0); AaDO2 41.8 mmHg; COHb 0.3 % (0.5-1.5); MetHb 0.3 % (0.0-1.5); O2Hb 95.3 % (94.0-97.0); SITE, ABG Left Radial; VENT MODE, BG 2L NC
--- NOTE | 2017-12-18 10:33 | NUR ---
GLASS TECHNICIAN/INSTALLER NOTES SEEN BY CHANGED STATUS TO TELE.SON JOON MADE AWARE ABOUT DISCHARGE.HE SAID HE CAN COME AND PICK HER UP AT 1130.ASKED HIM TO BRING O2 FROM HOME FOR TRANSPORTATION. PER CASE ALYSE EDWARDS PATIENT READY TO GO.SHE HAS BIPAP AT HOME .
--- NOTE | 2017-12-18 11:00 | NUR ---
SKI LIFT MECHANIC NOTES DE LA O CATH REMOVED PER DR ORDER.PATIENT ABLE TO VOID SMALL AMOUNT.WILL ASK FAMILY TO MONITOR FOR VOIDING PATTERN AND HOME HEALTH KNOW ABOUT F/C REMOVAL.
--- NOTE | 2017-12-18 11:43 | NUR ---
INTERNAL AFFAIRS COMMANDERCONCRETE FOREMAN NOTE PATIENT D/C HOME WITH HOME HEALTH IN STABLE CONDITION.NO SOB NO DISTRESS NOTED AT TIS TIME.ON O2 2L VIA NASAL CANULA.SATURATING 96%.AXOX2 WITH PERIODS OF FORGETFULNESS BELONGINGS TAKEN BY DAUGHTER IN LAW AND SIGNED CONSENT AND DISCHARGE PAPERWORK.EXIT CARE AND DISCHARGE INSTRUCTIONS GIVEN TO DAUGHTER IN LAW.ANSWERED ALL QUESTIONS.INCLUDED HOME HEALTH INFORMATION.SON IS IN CAR PER HER.IV REMOVED MILD BLEEDING NOTED.PRESSURE DRESSING APPLIED.
--- NOTE | 2017-12-18 11:43 | NUR ---
WINDOWS SOFTWARE ENGINEER NOTE PATIENT D/C HOME WITH HOME O2 IN PRIVATE CAR WITH DAUGHTER IN LOW.
== END 2017-12-18 11:40 | disposition home health service (06) | DRG 194 ==
LOC: ER 10:39 → ICU 12:11 → TELE-TD 12-16 10:23 → TELE1 12-18 10:58 → MEDSG1 12-18 10:59
PROVIDERS: ADMIT Family Medicine; ATTEND Family Medicine
PROC: 5A09457 Assistance with Respiratory Ventilation, 24-96 Consecutive Hours, Continuous Positive Airway Pressure (ICD-10-PCS; principal; 2017-12-12)
DX: I13.0 Hypertensive heart and chronic kidney disease with heart failure and stage 1 through stage 4 chronic kidney disease, or unspecified chronic kidney disease (principal); J96.21 Acute and chronic respiratory failure with hypoxia; N17.0 Acute kidney failure with tubular necrosis; E46 Unspecified protein-calorie malnutrition; J96.22 Acute and chronic respiratory failure with hypercapnia; I50.33 Acute on chronic diastolic (congestive) heart failure; N18.9 Chronic kidney disease, unspecified; J44.1 Chronic obstructive pulmonary disease with (acute) exacerbation; N39.0 Urinary tract infection, site not specified; I25.10 Atherosclerotic heart disease of native coronary artery without angina pectoris; Z68.29 Body mass index [BMI] 29.0-29.9, adult; J98.11 Atelectasis; G47.33 Obstructive sleep apnea (adult) (pediatric); K21.9 Gastro-esophageal reflux disease without esophagitis; M81.0 Age-related osteoporosis without current pathological fracture; Z86.73 Personal history of transient ischemic attack (TIA), and cerebral infarction without residual deficits; Z99.81 Dependence on supplemental oxygen; G44.209 Tension-type headache, unspecified, not intractable; F43.10 Post-traumatic stress disorder, unspecified; F03.90 Unspecified dementia, unspecified severity, without behavioral disturbance, psychotic disturbance, mood disturbance, and anxiety; E78.5 Hyperlipidemia, unspecified; D63.8 Anemia in other chronic diseases classified elsewhere; E83.41 Hypermagnesemia; E87.2 Acidosis; L80 Vitiligo
CPT/HCPCS: 36415; 36600; 71045-TC; 71250-TC; 80048-TC; 80053-TC; 80076-TC; 81000-TC; 82803-TC; 83540-TC; 83690-TC; 83735-TC; 83880; 84100-TC; 84484-TC; 85025-TC; 85730-TC; 87081-TC; 87086-TC; 92526; 92611-TC; 94799-TC; 97116-TC; 97530-TC; A4606; J1644; J1940; J2930; J3490; J7030; Z7610

== ENCOUNTER 2018-06-14 17:06 | Inpatient (IN) | payer MEDICARE, MEDICAID ==
[~2018-06-14] VITALS: Ht 152.4 cm; Wt 70.3 kg
[~2018-06-14 17:06] MED LIST changes: +ALBU1.25 NEB; -ALBU18HF2 IH; -ALBU2.5V13 NEB; +ASPI-1169 PO; -BUDE10.2 IH; -BUDESONIDE IH; +CHOL50004 PO; +CYAN500T4 PO; -FENOFIBRATE MICRONIZED PO; -FORMOTEROL FUMARATE IH; +FURO40TA5 PO; +IPRA0.2S9 NEB; +LINA145C PO; +MAGN400T26 PO; +MEGE40TA PO; -MELO7.5T12 PO; +ONDA8TAB6 PO; -PANT40TA2 PO; +POTA10CA43 PO; +POTA10TA10 PO; +PRED20TA PO; -RANOLAZINE PO; +SODI15OR8 PO; -SPIR25TA PO
--- NOTE | 2018-06-14 17:35 | NUR ---
AAOX3,PRESENTS TO ED FOR 2-3 DAYS OF INTERMITTENT HEADACHE, WEAKNESS, AND INCREASING SLEEPINESS. PATIENT REPORTS RELIEF OF DE WITH TYLENOL AT HOME AND STATES THAT SHE TOOK THIS MORNING. PT ALSO C/O MILD COUGH, ABDOMINAL PAIN AND INTERMITTENT CP FOR THE PAST FEW DAYS BUT DENIES CP AT THIS TIME. PATIENT ALSO C/O RECENT BILATERAL LOWER EXTREMIIES SWELLING. THE PT IS ON OXYGEN AT HOME. PLACED ON THE MONITOR. DR ALLAN AT FOR EVAL.
[2018-06-14] MEDS ORDERED: FUROSEMIDE 40 MG/4 ML VIAL IV ONE (18:00)
[2018-06-14 18:06] LABS: BASOPHILS # (AUTO) 0.1 /CMM (0.0-0.2); BASOPHILS % (AUTO) 0.9 % (0.0-2.0); EOSINOPHILS % (AUTO) 1.1 % (0.0-6.0); HEMATOCRIT 31 % (33-45); HEMOGLOBIN 9.7 g/dL (11.5-14.8); LYMPHOCYTES # (AUTO) 1.4 /CMM (0.8-4.8); LYMPHOCYTES % (AUTO) 17.8 % (20.0-44.0); MEAN CORPUSCULAR HGB CONC 31 g/dl (31.0-36.0); MEAN CORPUSCULAR VOLUME 88 fL (82-100); MONOCYTES # (AUTO) 0.7 /CMM (0.1-1.30); MONOCYTES % (AUTO) 8.7 % (2.0-12.0); NEUTROPHILS # (AUTO) 5.5 /CMM (1.8-8.9); NEUTROPHILS % (AUTO) 71.5 % (43.0-81.0); PLATELET COUNT (AUTO) 308 /CMM (150-450); RED BLOOD CELL COUNT(AUTO) 3.51 MIL/uL (4.0-5.2); WHITE BLOOD COUNT (AUTO) 7.6 K/uL (4.3-11.0)
[2018-06-14] MEDS ORDERED: FUROSEMIDE 40 MG/4 ML VIAL ONE (18:06)
[2018-06-14 18:16] LABS: CALCIUM, SERUM 8.9 mg/dL (8.5-10.1); CARBON DIOXIDE 37 mmol/L (21-32); CHLORIDE 90 mmol/L (98-107); CREATININE 1.8 mg/dL (0.6-1.3); GLUCOSE 114 mg/dL (74-106); POTASSIUM 4.8 mmol/L (3.5-5.1); SODIUM SERUM 129 mmol/L (136-145); UREA NITROGEN, BLOOD 30 mg/dL (7-18)
[2018-06-14 18:29] LABS: ALANINE AMINOTRANSFERASE 18 U/L (12-78); ALBUMIN 3.4 g/dL (3.4-5.0); ALKALINE PHOSPHATASE 46 U/L (46-116); ASPARTATE AMINOTRANSFERASE 26 U/L (15-37); B-TYPE NATRIURETIC PEPTIDE 1087 PG/ML (0-125); BILIRUBIN,TOTAL 0.3 mg/dL (0.2-1.0); TOTAL PROTEIN, SERUM 7.4 g/dL (6.4-8.2)
[2018-06-14] MEDS ORDERED: LOSA50TA39 PO (18:32)
[2018-06-14] MEDS ORDERED: BUDE10.2 IH (18:32)
[2018-06-14] MEDS ORDERED: ALBU18HF2 IH (18:32)
--- NOTE | 2018-06-14 19:14 | NUR ---
REPORT GIVEN TO KOKO ATWOOD FOR NEIL.
--- NOTE | 2018-06-14 19:51 | NUR ---
CALLED NURSING SUP. FOR TELE BED
--- NOTE | 2018-06-14 20:15 | NUR ---
called nursing sup for bed. awaiting call back
--- NOTE | 2018-06-14 20:29 | NUR ---
tele [phone], dr. Sanchez admitting
--- NOTE | 2018-06-14 21:01 | NUR ---
REPORT GIVEN TO MISHA SUTHERLAND FOR NEIL; PT WILL BE TRANSPORTED TO [address] [place] [address] VIA ACLS PROTOCOL
--- NOTE | 2018-06-14 21:11 | NUR ---
PER ADMITTING DEPT, THEY ARE STILL VERIFYING INSURANCE PT IS NOT READY TO GO TO INPATIENT FLOOR
[2018-06-14 21:45] VITALS: BP 158/78
--- NOTE | 2018-06-14 21:45 | NUR ---
TELE/RN OPENING NOTES PT RECEIVED FROM ER, ON 5L O2 VIA SIMPLE MASK. BREATHING EVEN AND UNLABORED AT THIS TIME. BON SPEAKING, ABLE TO SPEAK SOME [place] AND MAKE BASIC NEEDS KNOWN. IV TO LEFT WRIST #18 PATENT AND INTACT. FLUSHES WELL. PLACED ON TELE MONITOR, SHOWING SR 97. DENIES PAIN AT THIS TIME. ORIENTED PT TO ROOM AND CALL LIGHT. HOB ELEVATED FOR MAXIMUM LUNG EXPANSION. BED IN LOW/LOCKED POSITION WITH CALL LIGHT IN REACH. BILATERAL UPPER SIDE RAILS IN PLACE. WILL CONTINUE TO MONITOR
--- NOTE | 2018-06-14 22:10 | NUR ---
TELE/RN NOTES ADMITTED PT UNDER THE CARE OF DR. GOFF, HOME MEDICATIONS REVIEWED. ADMITTING ORDERS PROVIDED. Addendum: 06/15/18 at 0342 by MISHA DANIEL RN LABS AND IMAGING RESULTS FROM ER ALSO REVIEWED WITH DR. GOFF
[2018-06-14] MEDS ORDERED: LORAZEPAM 0.5 MG TABLET PO PRN (22:30)
[2018-06-15] VITALS (50 sets, daily range): BP systolic 93–171; BP diastolic 41–87
[2018-06-15] MEDS: ACETAMINOPHEN ES 500 MG TABLET PO PRN (00:22)
[2018-06-15] MEDS: FUROSEMIDE 20 MG/2 ML VIAL IV SCH ×4 (01:23→17:36)
[2018-06-15] MEDS: ALBUTEROL FS 2.5 MG/3 ML VIAL.NEB NEB SCH ×4 (01:28→20:00)
[2018-06-15] MEDS: IPRATROPIUM NEB FS 0.5 MG/2.5 ML AMPUL.NEB NEB SCH ×4 (01:28→20:00)
--- NOTE | 2018-06-15 01:39 | NUR ---
TELE/RN NOTES PT WITH INCREASED WORK OF BREATHING AND MORE DIFFICULT TO AROUSE. OPENS EYES TO DEEP PAIN. RT AT BEDSIDE. BREATHING TX PROVIDED AND LASIX ADMINISTERED ORDERED. LIFE ENRICHMENT DIRECTOR AWARE. STAT ABG ORDERED. PAGED DR. GOFF'S OFFICE AND CELL NUMBER TO NOTIFY HIM OF PT'S CHANGE IN CONDITION WITH NO RESPONSE. LEFT VOICEMAIL. WILL TRY AGAIN.
--- NOTE | 2018-06-15 01:40 | NUR ---
TELE/RN NOTES UNABLE TO TITRATE O2 DOWN, PT MOUTH BREATHER. PT DESATURATES TO 72% VIA NC.
[2018-06-15 01:56] LABS: ABG BASE EXCESS 16.8 mmol/L; ABG OXYGEN SATURATION 94.9 % (92.0-98.5); ABG PCO2 100.3 mmHg (35.0-45.0); ABG PH 7.288 (7.350-7.450); ABG PO2 100.7 mmHg (75.0-100.0); MetHb 0.3 % (0.0-1.5); O2Hb 94.6 % (94.0-97.0); SITE, ABG Right Femoral; VENT MODE, BG 50% NEBULIZER MASK
--- NOTE | 2018-06-15 02:00 | NUR ---
TELE/RN NOTES ABG RESULTED. PAGED DR. GOFF AGAIN AND LEFT VOICEMAIL. ACCOUNT MANAGER NOTIFIED NURSING EMPLOYMENT SPECIALIST/PROGRAM MANAGER. PT NEEDS RESCUE BIPAP. ICU ACCOUNT MANAGER MADE AWARE, TRANSFER PT TO ROOM 257
--- NOTE | 2018-06-15 02:15 | NUR ---
TRANSFERRED PT TO ICU ROOM 257 VIA ACLS PROTOCOL
--- NOTE | 2018-06-15 02:16 | NUR ---
patient was altered and difficult to arouse, performed an ABG, per results and MD ordered, transferred to ICU and placed on BIPAP Addendum: 06/15/18 at 0217 by LENY CAVANAUGH RT Amended: Links added.
[2018-06-15 03:51] LABS: ABG BASE EXCESS 19.3 mmol/L; ABG OXYGEN SATURATION 83.3 % (92.0-98.5); ABG PCO2 84.7 mmHg (35.0-45.0); ABG PO2 51.4 mmHg (75.0-100.0); AaDO2 173.1 mmHg; COHb 1.1 % (0.5-1.5); MetHb 0.3 % (0.0-1.5); O2Hb 82.1 % (94.0-97.0); SITE, ABG Right Radial
[2018-06-15 06:39] LABS: BILIRUBIN,URINE NEGATIVE (NEGATIVE); BLOOD, URINE 1+ Ery/uL (NEGATIVE); COLOR,URINE YELLOW (YELLOW); KETONES,URINE NEGATIVE (NEGATIVE); LEUKOCYTE ESTERASE ,URINE NEGATIVE (NEGATIVE); NITRITE, URINE NEGATIVE (NEGATIVE); PH,URINE 5.5 (5.0-8.0); PROTEIN,URINE NEGATIVE (NEGATIVE); UGLUCOSE NEGATIVE (NEGATIVE); UROBILINOGEN,URINE 0.2 EU/dL (0.2)
[2018-06-15 06:51] LABS: CALCIUM, SERUM 8.8 mg/dL (8.5-10.1); CHLORIDE 90 mmol/L (98-107); CREATININE 1.7 mg/dL (0.6-1.3); GLUCOSE 87 mg/dL (74-106); MAGNESIUM 2.2 mg/dL (1.8-2.4); POTASSIUM 4.3 mmol/L (3.5-5.1); SODIUM SERUM 134 mmol/L (136-145); UREA NITROGEN, BLOOD 29 mg/dL (7-18)
[2018-06-15 06:52] LABS: THYROID STIMULATING HORMONE 1.132 uIU/mL (0.358-3.74)
--- NOTE | 2018-06-15 07:00 | NUR ---
UTILIZATION MANAGEMENT RN PT WAS TRANSFERRED FROM [facility] WITH DIAGNOSIS RESPIRATORY FAILURE, COPD EXACERBATION. ABG WAS DONE- RESPIRATORY ACIDOSIS. PT WAS PLACED ON BIPAP. PT IS DROWSY, RESPONSE TO VOICE, MOVES ALL EXTREMITIES, LEGS ARE WEAK. NO EDEMA. SCOPE-SR. VSS, AFEBRILE. LUNG SOUNDS DIMINISHED. F/C WAS INSERTED, LARGE AMT. OF CLEAR PALE YELLOW URINE DRAINED D/T PT WAS GIVEN LASIX IVP. URINE SPECIMENS SENT FOR UA & URINE CULTURE. COMPLETE BATH GIVEN, ALL LINEN CHANGED. ABG WAS REPEATED IN 2 HOURS AFTER PLACING PT ON BIPAP- SEE RESULT. WILL CONTINUE CLOSE MONITORING. REPORT GIVEN TO SRINIVASAN CRISTINA RN.
[2018-06-15 07:07] LABS: APPEARANCE,URINE HAZY (CLEAR)
[2018-06-15 07:17] LABS: IRON, SERUM 26 ug/dl (50-175); TOTAL IRON BINDING CAPACITY 481 ug/dl (250-450)
[2018-06-15 07:22] LABS: CARBON DIOXIDE 40 mmol/L (21-32)
--- NOTE | 2018-06-15 07:30 | NUR ---
RECEIVED PATIENT ON BIPAP. LETHARGIC AND MOVES TO PAINFUL STIMULI; TOLERATING BIPAP. VSS. DE LA O CATH TO GRAVITY. AIRWAY PATENT. PENDING UPDATED ABG. DR GOFF AWARE AND WILL SEE PATIENT IN AM. SAFETY, SKIN, ASPIRATION PRECAUTIONS IN PLACE AND WILL MONITOR
[2018-06-15 07:39] LABS: BACTERIA,URINE Many /HPF (None Seen); SQUAMOUS EPITHELIAL CELL,UR Rare /HPF (None Seen); WBC,URINE 0-2 /HPF (0-3)
--- NOTE | 2018-06-15 08:05 | NUR ---
IRON 26. PER MD ORDER AND GIVE FERRLECIT 125MG IV X3 DAYS
[2018-06-15] MEDS: POTASSIUM CHLORIDE 20 MEQ TAB.PRT.SR PO SCH (09:00)
[2018-06-15 09:02] LABS: ABG BASE EXCESS 17.2 mmol/L; ABG OXYGEN SATURATION 87.1 % (92.0-98.5); ABG PCO2 68.2 mmHg (35.0-45.0); ABG PH 7.429 (7.350-7.450); ABG PO2 55.4 mmHg (75.0-100.0); AaDO2 224.4 mmHg; COHb 0.4 % (0.5-1.5); MetHb 0.3 % (0.0-1.5); O2Hb 86.5 % (94.0-97.0); SITE, ABG Right Brachial; VENT MODE, BG IPAP 20 / EPAP 5
[2018-06-15 09:02] LABS: BASOPHILS # (AUTO) 0.1 /CMM (0.0-0.2); BASOPHILS % (AUTO) 0.9 % (0.0-2.0); HEMATOCRIT 32 % (33-45); HEMOGLOBIN 10.1 g/dL (11.5-14.8); LYMPHOCYTES # (AUTO) 1.1 /CMM (0.8-4.8); LYMPHOCYTES % (AUTO) 20.2 % (20.0-44.0); MEAN CORPUSCULAR HGB CONC 32 g/dl (31.0-36.0); MEAN CORPUSCULAR VOLUME 87 fL (82-100); MONOCYTES # (AUTO) 0.7 /CMM (0.1-1.30); MONOCYTES % (AUTO) 12.5 % (2.0-12.0); NEUTROPHILS # (AUTO) 3.6 /CMM (1.8-8.9); NEUTROPHILS % (AUTO) 65.4 % (43.0-81.0); PLATELET COUNT (AUTO) 263 /CMM (150-450); RED BLOOD CELL COUNT(AUTO) 3.67 MIL/uL (4.0-5.2); WHITE BLOOD COUNT (AUTO) 5.5 K/uL (4.3-11.0)
--- NOTE | 2018-06-15 09:10 | NUR ---
dr fernandez at bedside. updated on patient am labs and vs. per md ok to hold potassium as patient npo at this time s/t lethargy. no iv replacement needed. ok to continue with lasix ivp as ordered
--- NOTE | 2018-06-15 09:20 | NUR ---
spoke with dr corrigan and dr medley notified of abg. no new orders at this time continue on bipap. notified md's if bipap removed patient desaturates quickly. at this time saturation 98-100% on bipap. resting comfortably
[2018-06-15] MEDS ORDERED: ONDANSETRON 4 MG TAB.RAPDIS PO PRN (09:30)
[2018-06-15] MEDS ORDERED: MISCELLANEOUS MED 1 EA EA XX ONE (09:30)
[2018-06-15] MEDS: ASPIRIN EC 81 MG TABLET.DR PO SCH (09:47)
[2018-06-15] MEDS: CYANOCOBALAMIN 500 MCG TABLET PO SCH (09:48)
[2018-06-15] MEDS: FOLIC ACID 1 MG TABLET PO SCH (09:49)
[2018-06-15] MEDS: MAGNESIUM OXIDE 400 MG TABLET PO SCH (09:50)
[2018-06-15] MEDS: LOSARTAN POTASSIUM 50 MG TABLET PO SCH (09:50)
[2018-06-15] MEDS ORDERED: VALS80TA2 PO (09:54)
[2018-06-15] MEDS ORDERED: LINA145C PO (09:54)
[2018-06-15] MEDS ORDERED: SODI15OR8 PO (09:54)
--- NOTE | 2018-06-15 09:55 | NUR ---
DR SABILLON & DR GOFF AT BEDSIDE. MED RECON UPDATED PER SON DR AMARAL. NOTIFIED PRIMARY UNABLE TO GIVE ANY PO MEDS S/T LETHARGY.
[2018-06-15] MEDS ORDERED: HYDROCORTISONE SOD SUCCINATE 100 MG/2 ML VIAL IV ONE ×2 (10:30→14:00)
[2018-06-15] MEDS ORDERED: ALBUTEROL HALF STRENGTH 1.25 MG/3 ML VIAL.NEB NEB SCH (11:30)
[2018-06-15] MEDS ORDERED: IPRATROPIUM NEB FS 0.5 MG/2.5 ML AMPUL.NEB NEB SCH (11:30)
[2018-06-15] MEDS: MEGESTROL ACETATE 40 MG TABLET PO SCH ×2 (12:12→17:00)
--- NOTE | 2018-06-15 13:18 | NUR ---
PER DR GOFF PLEASE ORDER SOLU MEDROL 120MG IVP TODAY. 60MG IVP /18 AT 1400. AND 30MG IVP 3/ AT 1400.
[2018-06-15 14:40] LABS: CREATININE, URINE 112.7 MG/DL (30.0-125.0); URINE TOTAL PROTEIN 32.1 mg/dL (0-11.9)
[2018-06-15] MEDS: SOD FERRIC GLUC 125 MG in IV NS 0.9% 100 ML IV SCH (14:42)
[2018-06-15 15:11] LABS: APPEARANCE,URINE CLEAR (CLEAR); BILIRUBIN,URINE NEGATIVE (NEGATIVE); BLOOD, URINE 2+ Ery/uL (NEGATIVE); COLOR,URINE YELLOW (YELLOW); KETONES,URINE NEGATIVE (NEGATIVE); LEUKOCYTE ESTERASE ,URINE 2+ (NEGATIVE); NITRITE, URINE NEGATIVE (NEGATIVE); PH,URINE 7.5 (5.0-8.0); PROTEIN,URINE TRACE mg/dl (NEGATIVE); UGLUCOSE NEGATIVE (NEGATIVE); UROBILINOGEN,URINE 0.2 EU/dL (0.2)
[2018-06-15 15:37] LABS: BACTERIA,URINE 2+ /HPF (None Seen); SQUAMOUS EPITHELIAL CELL,UR 0-2 /HPF (None Seen)
[2018-06-15 15:54] LABS: EOSINOPHIL,URINE None Seen
--- NOTE | 2018-06-15 19:17 | NUR ---
CARE ENDORSED TO RN FOR NEIL. PATIENT ALERT AND RESPONDING TO QUESTIONS ASKED. FOLLOWING COMMANDS. TOLERATING BIPAP. VSS. SAFETY, SKIN, ASPIRATION PRECAUTIONS IN PLACE AND MONITORED THROUGHOUT DAY. DE LA O TO GRAVITY.
--- NOTE | 2018-06-15 19:35 | NUR ---
RN NOTES RECEIVED PT ASLEEP ON BED WITH BIPAP 20/5 RATE 22 FIO2 80%. SATURATION 100%. WARMTH TO TOUCH. TEMP 100 DEG . NO ACUTE RESPIRATORY DISTRESS. NSR ON TELE MONITOR. PATIENT FOLLOWS COMMAND ABLE TO TURN AND REPOSITION WITH ENCOURAGEMENT. IV SITE ON LEFT WRIST INTACT AND PATENT. DENIES PAIN AT THIS TIME. COOLING MEASURES RENDERED. F/C IN PLACED DRAINED VIA GRAVITY WITH YELLOW CLEAR COLOR URINE. KEPT PT CLEAN AND DRY. CALL LIGHT KEPT WITHIN EASY REACH. WILL CONTINUE TO MONITOR.
--- NOTE | 2018-06-15 21:00 | NUR ---
RN NOTES FIO2 CHANGED TO 70% BY RT WILL CLOSELY MONITOR.
[2018-06-16] VITALS (41 sets, daily range): BP systolic 91–157; BP diastolic 48–92
--- NOTE | 2018-06-16 00:30 | NUR ---
RN NOTES S/E BY DR. MIGUEL SMITH WITH NEW ORDER NOTED AND CARRIED OUT.
[2018-06-16] MEDS: IPRATROPIUM NEB FS 0.5 MG/2.5 ML AMPUL.NEB NEB SCH ×4 (01:10→19:49)
[2018-06-16] MEDS: ALBUTEROL FS 2.5 MG/3 ML VIAL.NEB NEB SCH ×4 (01:10→19:49)
[2018-06-16 05:18] LABS: BASOPHILS % (AUTO) 0.4 % (0.0-2.0); HEMATOCRIT 33 % (33-45); HEMOGLOBIN 10.4 g/dL (11.5-14.8); LYMPHOCYTES # (AUTO) 0.8 /CMM (0.8-4.8); LYMPHOCYTES % (AUTO) 11.5 % (20.0-44.0); MEAN CORPUSCULAR HGB CONC 32 g/dl (31.0-36.0); MEAN CORPUSCULAR VOLUME 86 fL (82-100); MONOCYTES # (AUTO) 0.8 /CMM (0.1-1.30); MONOCYTES % (AUTO) 11.4 % (2.0-12.0); NEUTROPHILS # (AUTO) 5.4 /CMM (1.8-8.9); NEUTROPHILS % (AUTO) 76.7 % (43.0-81.0); PLATELET COUNT (AUTO) 305 /CMM (150-450); RED BLOOD CELL COUNT(AUTO) 3.82 MIL/uL (4.0-5.2); WHITE BLOOD COUNT (AUTO) 7.1 K/uL (4.3-11.0)
--- NOTE | 2018-06-16 05:32 | NUR ---
RT Pt on BiPAP t/o the night. svn given inline. No resp distress noted. Addendum: 06/16/18 at 0534 by AMPARO CORREIA RT Amended: Links added.
[2018-06-16 05:55] LABS: CREATINE KINASE, TOTAL 285 U/L (26-192); FERRITIN 94 ng/mL (8-388); THYROID STIMULATING HORMONE 0.776 uIU/mL (0.358-3.74); URIC ACID 7.4 mg/dL (2.6-7.2)
[2018-06-16 05:56] LABS: ALANINE AMINOTRANSFERASE 16 U/L (12-78); ALBUMIN 3.2 g/dL (3.4-5.0); ALKALINE PHOSPHATASE 44 U/L (46-116); ASPARTATE AMINOTRANSFERASE 25 U/L (15-37); BILIRUBIN,TOTAL 0.3 mg/dL (0.2-1.0); CALCIUM, SERUM 9.2 mg/dL (8.5-10.1); CARBON DIOXIDE 39 mmol/L (21-32); CHLORIDE 92 mmol/L (98-107); CREATININE 1.8 mg/dL (0.6-1.3); GLUCOSE 86 mg/dL (74-106); MAGNESIUM 2.3 mg/dL (1.8-2.4); PHOSPHORUS 4.4 mg/dL (2.5-4.9); POTASSIUM 3.8 mmol/L (3.5-5.1); SODIUM SERUM 137 mmol/L (136-145); TOTAL PROTEIN, SERUM 7.1 g/dL (6.4-8.2); UREA NITROGEN, BLOOD 32 mg/dL (7-18)
[2018-06-16 06:26] LABS: IRON, SERUM 82 ug/dl (50-175); TOTAL IRON BINDING CAPACITY 469 ug/dl (250-450)
--- NOTE | 2018-06-16 07:00 | NUR ---
MRI APPROVED BY DR. SALTER.
--- NOTE | 2018-06-16 07:09 | NUR ---
RN NOTES PATIENT ASLEEP WELL ON BED. CONTINUE WITH BIPAP, SETTING TOLERATED WELL. AFEBRILE. VSS. NO SIGNIFICANT CHANGES SHOWN PATIENT IS MORE COOPERATIVE WITHOUT SOB OR DECREASE ON SATURATION. KEPT PT CLEAN AND DRY ALL NEEDS ATTENDED. CALL LIGHT KEPT WITHIN EASY REACH
--- NOTE | 2018-06-16 07:25 | NUR ---
RECEIVED PATIENT ON BIPAP. PATIENT MORE AWAKE AND ALERT TODAY. DENIES PAIN. TOLERATING BIPAP. VSS. DE LA O CATH TO GRAVITY. AIRWAY PATENT. MEPILEX IN PLACE FOR PROTECTION FROM BIPAP MASK. SAFETY, SKIN, ASPIRATION PRECAUTIONS IN PLACE AND WILL MONITOR. PENDING MRI AND EEG PER NEURO TODAY. WILL PROVIDE PATIENT WITH SWALLOW EVAL ONCE ABLE TO TAKE BIPAP MASK OFF.
[2018-06-16] MEDS: PANTOPRAZOLE 40 MG TABLET.DR PO SCH (07:30)
[2018-06-16] MEDS: FUROSEMIDE 20 MG/2 ML VIAL IV SCH (08:16)
[2018-06-16] MEDS ORDERED: MELOXICAM 7.5 MG TABLET PO SCH (09:00)
[2018-06-16] MEDS ORDERED: CIPROFLOXACIN HCL 250 MG TABLET PO SCH (09:00)
[2018-06-16] MEDS ORDERED: RANEXA PO SCH (09:00)
[2018-06-16 09:06] LABS: ABG BASE EXCESS 15.7 mmol/L; ABG OXYGEN SATURATION 95.6 % (92.0-98.5); ABG PCO2 59.9 mmHg (35.0-45.0); ABG PH 7.462 (7.350-7.450); ABG PO2 100.8 mmHg (75.0-100.0); AaDO2 333.9 mmHg; COHb 0.3 % (0.5-1.5); MetHb 0.3 % (0.0-1.5); SITE, ABG Right Radial
[2018-06-16] MEDS ORDERED: HYDROCORTISONE SOD SUCCINATE 100 MG/2 ML VIAL IV ONE ×2 (10:30→14:00)
--- NOTE | 2018-06-16 10:30 | NUR ---
PATIENT BIPAP REMOVED. ORAL CARE COMPLETED. PATIENT PASSED SWALLOW EVAL WITHOUT COMPLICATION. PATIENT DAUGHTER AT BEDSIDE. DISCUSSED MRI WITH PATIENT AND DAUGHTER IN LAW AT BEDSIDE AND SON OVER PHONE. PATIENT TOLEATING LOW FLOW [address] SABILLON AND PER OKAY TO LEAVE ON NASAL CANNULA. NO SOB, DIFFICULTY BREATHING NOTED. NO DISTRESS. WILL MONITOR. PER PATIENT CONSENT SIGNED BY DAUGHTER IN LAW AND PATIENT AGREEABLE TO MRI.
[2018-06-16] MEDS: MAGNESIUM OXIDE 400 MG TABLET PO SCH (10:44)
[2018-06-16] MEDS: ASPIRIN EC 81 MG TABLET.DR PO SCH (10:45)
[2018-06-16] MEDS: MEGESTROL ACETATE 40 MG TABLET PO SCH ×3 (10:45→17:24)
[2018-06-16] MEDS: POTASSIUM CHLORIDE 20 MEQ TAB.PRT.SR PO SCH (10:45)
[2018-06-16] MEDS: CYANOCOBALAMIN 500 MCG TABLET PO SCH (10:45)
[2018-06-16] MEDS: SPIRONOLACTONE 25 MG TABLET PO SCH (10:46)
[2018-06-16] MEDS: LOSARTAN POTASSIUM 50 MG TABLET PO SCH (10:46)
[2018-06-16] MEDS: CHOLECALCIFEROL 1,000 UNIT TABLET (VIT D3) PO SCH (10:46)
[2018-06-16] MEDS: ATORVASTATIN 10 MG TABLET PO SCH (10:46)
[2018-06-16] MEDS: FENOFIBRATE NANOCRYS (145 MG) 145 MG TABLET PO SCH (10:46)
[2018-06-16] MEDS: FOLIC ACID 1 MG TABLET PO SCH (10:46)
[2018-06-16] MEDS: ACETAMINOPHEN ES 500 MG TABLET PO PRN (11:06)
--- NOTE | 2018-06-16 11:40 | NUR ---
ACCOMPANYING PATIENT TO MRI BRAIN. STABLE VS.
--- NOTE | 2018-06-16 13:00 | NUR ---
PATIENT BACK FROM MRI. NO COMPLICATIONS. VSS. BED BATH COMPLETED.
[2018-06-16] MEDS: CIPROFLOXACIN HCL 500 MG TABLET PO SCH ×2 (13:48→20:32)
[2018-06-16] MEDS: SOD FERRIC GLUC 125 MG in IV NS 0.9% 100 ML IV SCH (13:59)
[2018-06-16] MEDS: FUROSEMIDE 40 MG TABLET PO SCH (17:24)
--- NOTE | 2018-06-16 17:47 | NUR ---
PER DAUGHTER IN LAW SHE WILL BRING ASMITAEXA TOMORROW
--- NOTE | 2018-06-16 18:53 | NUR ---
all due meds given and all needs met. patient stable on nasal cannula. no sob, difficulty breathing or pain. patient back to baseline per family. iv site c/d/i/p. Juarez to gravity. safety, skin, aspiration precautions in place and monitored throughout day
--- NOTE | 2018-06-16 19:30 | NUR ---
RN NOTES RECEIVED PT AWAKE ON BED DONE EATING HIS DINNER. PATIENT IS AOX2-3 ON O2 4LPM VIA NC SATURATION 93%. NO ACUTE RESPIRATORY DISTRESS. AFEBRILE. TELE MONITOR REVEALS NSR. IV SITE ON LAC G 20 C/D/I FLUSHED WELL.F/C DRAINED WITH YELLOW COLOR URINE VIA GRAVITY. REMINDED TO USED CALL LIGHT FOR ASSISTANCE PT DEMONSTRATED UNDERSTANDING.
--- NOTE | 2018-06-16 20:20 | NUR ---
RECEIVED PT ON 3L NC. PT IS AWAKE NO RESP DISTRESS. O2 SAT 95%. PT IS RECEIVING Q6 BREATHING TX. BIPAP AT BEDSIDE. WILL CONTINUE TO MONITOR.
--- NOTE | 2018-06-16 23:40 | NUR ---
PT PLACED ON BIPAP. RN NOTIFIED. WILL CONTINUE TO MONITOR. Addendum: 06/16/18 at 2340 by LINH HOLCOMB RT Amended: Links added.
[2018-06-17] VITALS (26 sets, daily range): BP systolic 97–127; BP diastolic 51–75
[2018-06-17] MEDS: ALBUTEROL FS 2.5 MG/3 ML VIAL.NEB NEB SCH ×4 (01:27→19:49)
[2018-06-17] MEDS: IPRATROPIUM NEB FS 0.5 MG/2.5 ML AMPUL.NEB NEB SCH ×4 (01:27→19:49)
[2018-06-17 05:05] LABS: BASOPHILS % (AUTO) 0.4 % (0.0-2.0); HEMATOCRIT 33 % (33-45); HEMOGLOBIN 10.5 g/dL (11.5-14.8); LYMPHOCYTES # (AUTO) 1.1 /CMM (0.8-4.8); LYMPHOCYTES % (AUTO) 15.7 % (20.0-44.0); MEAN CORPUSCULAR HGB CONC 32 g/dl (31.0-36.0); MEAN CORPUSCULAR VOLUME 87 fL (82-100); MONOCYTES # (AUTO) 0.9 /CMM (0.1-1.30); MONOCYTES % (AUTO) 12.5 % (2.0-12.0); NEUTROPHILS # (AUTO) 5.1 /CMM (1.8-8.9); NEUTROPHILS % (AUTO) 71.4 % (43.0-81.0); PLATELET COUNT (AUTO) 307 /CMM (150-450); RED BLOOD CELL COUNT(AUTO) 3.78 MIL/uL (4.0-5.2); WHITE BLOOD COUNT (AUTO) 7.1 K/uL (4.3-11.0)
[2018-06-17 05:25] LABS: ALANINE AMINOTRANSFERASE 14 U/L (12-78); ALBUMIN 2.9 g/dL (3.4-5.0); ALKALINE PHOSPHATASE 41 U/L (46-116); ASPARTATE AMINOTRANSFERASE 21 U/L (15-37); BILIRUBIN,TOTAL 0.3 mg/dL (0.2-1.0); CALCIUM, SERUM 9.3 mg/dL (8.5-10.1); CARBON DIOXIDE 38 mmol/L (21-32); CHLORIDE 97 mmol/L (98-107); CREATININE 1.9 mg/dL (0.6-1.3); GLUCOSE 89 mg/dL (74-106); MAGNESIUM 2.6 mg/dL (1.8-2.4); PHOSPHORUS 3.5 mg/dL (2.5-4.9); POTASSIUM 4.4 mmol/L (3.5-5.1); SODIUM SERUM 139 mmol/L (136-145); TOTAL PROTEIN, SERUM 6.7 g/dL (6.4-8.2); UREA NITROGEN, BLOOD 42 mg/dL (7-18)
--- NOTE | 2018-06-17 05:37 | NUR ---
PT TAKEN OFF BIPAP. PLACED ON 3L NC. RN NOTIFIED.
--- NOTE | 2018-06-17 07:05 | NUR ---
RN NOTES PATIENT REMAINED IN STABLE CONDITION TOLERATED BIPAP AT NIGHT AND O2 4LPM VIA NC SATURATION KEPT >92%. AFEBRILE. NO CHANGE OF MENTAL STATUS PATIENT IS AOX2-3 PERIODS OF CONFUSION NOTED. ALL DUE MEDICINE TOLERATED BY MOUTH. IV SITE INTACT AND PATENT. F/C DRAINED WITH YELLOW COLOR URINE VIA GRAVITY. CALL LIGHT KEPT WITHIN EASY REACH. ENDORSED CONTINUITY OF CARE TO AM NURSE.
--- NOTE | 2018-06-17 07:53 | NUR ---
INITIAL STRINGING MACHINE OPERATOR NOTE RCVD PT AWAKE AND ALERT, SHOWING NO S/O DISTRESS, SR ON MONITOR, TOLERATING O2 VIA NASAL CANNULA, DE LA O TO GRAVITY DRAINING YELLOW URINE. LEFT AC #20 C/D/I/PATENT, NO S/O INFILTRATION/PHLEBITIS OBSERVED UPON FLUSHING. WILL CONTINUE TO MONITOR PT FOR SAFETY AND COMFORT, BED IN LOW AND LOCKED POSITION. CALL LIGHT WITHIN REACH, HEAD OF BED ELEVATED. HEELS OFFLOADED WITH PILLOWS.
[2018-06-17] MEDS: FUROSEMIDE 40 MG TABLET PO SCH ×2 (08:12→16:59)
[2018-06-17] MEDS: MEGESTROL ACETATE 40 MG TABLET PO SCH ×3 (08:12→16:59)
[2018-06-17] MEDS: CYANOCOBALAMIN 500 MCG TABLET PO SCH (08:13)
[2018-06-17] MEDS: PANTOPRAZOLE 40 MG TABLET.DR PO SCH (08:13)
[2018-06-17] MEDS: ASPIRIN EC 81 MG TABLET.DR PO SCH (08:13)
[2018-06-17] MEDS: FOLIC ACID 1 MG TABLET PO SCH (08:13)
[2018-06-17] MEDS: FENOFIBRATE NANOCRYS (145 MG) 145 MG TABLET PO SCH (08:13)
[2018-06-17] MEDS: ATORVASTATIN 10 MG TABLET PO SCH (08:13)
[2018-06-17] MEDS: POTASSIUM CHLORIDE 20 MEQ TAB.PRT.SR PO SCH (08:13)
[2018-06-17] MEDS: LOSARTAN POTASSIUM 50 MG TABLET PO SCH (08:14)
[2018-06-17] MEDS: CHOLECALCIFEROL 1,000 UNIT TABLET (VIT D3) PO SCH (08:14)
[2018-06-17] MEDS: SPIRONOLACTONE 25 MG TABLET PO SCH (08:14)
[2018-06-17] MEDS: MAGNESIUM OXIDE 400 MG TABLET PO SCH (08:15)
[2018-06-17] MEDS: CIPROFLOXACIN HCL 500 MG TABLET PO SCH ×2 (08:17→21:00)
[2018-06-17 08:58] LABS: ABG BASE EXCESS 13.4 mmol/L; ABG OXYGEN SATURATION 88.4 % (92.0-98.5); ABG PCO2 63.6 mmHg (35.0-45.0); ABG PH 7.418 (7.350-7.450); ABG PO2 60.9 mmHg (75.0-100.0); AaDO2 78.3 mmHg; COHb 0.1 % (0.5-1.5); MetHb 0.3 % (0.0-1.5); SITE, ABG Right Radial; VENT MODE, BG NASAL CANNULA
[2018-06-17 11:10] LABS: *SPE A/G RATIO 1.1 (0.7-1.7); *SPE ALBUMIN 3.4 g/dL (2.9-4.4); *SPE ALPHA-1-GLOBULIN 0.3 g/dL (0.0-0.4); *SPE ALPHA-2-GLOBULIN 0.9 g/dL (0.4-1.0); *SPE BETA GLOBULIN 1.1 g/dL (0.7-1.3); *SPE M-SPIKE Not Observed g/dL (Not Observed); *SPEGAMMA GLOBULIN 0.8 g/dL (0.4-1.8)
--- NOTE | 2018-06-17 11:55 | NUR ---
APPAREL PATTERNMAKER NOTE DR. LESLIE IN UNIT INFORMED OF PT'S ABG RESULTS, NO NEW ORDERS RCVD, PT ABLE TO TRANSFER WITH ONE PERSON ASSIST FROM BED TO BSC. NO DIZZINESS REPORTED.
[2018-06-17] MEDS: ACETAMINOPHEN ES 500 MG TABLET PO PRN (12:04)
[2018-06-17] MEDS ORDERED: HYDROCORTISONE SOD SUCCINATE 100 MG/2 ML VIAL IV ONE (14:00)
[2018-06-17 14:02] LABS: PTH, INTACT 63 pg/mL (15-65)
[2018-06-17] MEDS: SOD FERRIC GLUC 125 MG in IV NS 0.9% 100 ML IV SCH (14:48)
[2018-06-17] MEDS: CLOTRIMAZOLE 1% 15 GM TUBE TP SCH (16:59)
[2018-06-17] MEDS: DOCUSATE SODIUM 100 MG CAPSULE PO SCH (16:59)
[2018-06-17] MEDS: AMMONIUM LACTATE 227 GM BOTTLE TP SCH (16:59)
--- NOTE | 2018-06-17 18:07 | NUR ---
AUTO CAMP ATTENDANT NOTE PT REMAINS STABLE, SHOWING NO S/O DISTRESS AT THIS TIME, SR ON MONITOR, TOLERATING O2 VIA NASAL CANNULA, PER DR. LESLIE TO USE BIPAP WITH AVAPS MODE AT BEDTIME. DE LA O TO GRAVITY DRAINING CLEAR, YELLOW URINE. LEFT AC #20 C/D/I/PATENT. NO S/O INFILTRATION/PHLEBITIS OBSERVED UPON FLUSHING, BED IN LOW AND LOCKED POSITION. CALL LIGHT WITHIN REACH, HEAD OF BED ELEVATED.
--- NOTE | 2018-06-17 19:00 | NUR ---
IMPORT COORDINATION AND PRODUCTION HEAD NOTES Received patient awake,alert,(does not speak nor understand Venezuelan)but tries to communicate by gesturing,follows simple commands.Not in any distress,with O2 via NC 3 L/min.,BIPAP q HS.Comfort care done,needs attended.will closely monitor respiratory status.
--- NOTE | 2018-06-17 22:15 | NUR ---
PT TRANSFERRED TO 118-.
[2018-06-18] VITALS (7 sets, daily range): BP systolic 97–126; BP diastolic 48–68
[2018-06-18] MEDS: ALBUTEROL FS 2.5 MG/3 ML VIAL.NEB NEB SCH ×4 (00:40→19:40)
[2018-06-18] MEDS: IPRATROPIUM NEB FS 0.5 MG/2.5 ML AMPUL.NEB NEB SCH ×4 (00:40→19:40)
--- NOTE | 2018-06-18 02:08 | NUR ---
RT NOTES PT REFUSED TO BE ON BIPAP AT THOIS TIME. TAKEN OFF, PLACED ON 3 LPM CANNULA. NO DISTRESS OR SOB NOTED. WILL CONT TO MONITOR PT FOR REST OF SHIFT.
--- NOTE | 2018-06-18 07:10 | NUR ---
BERTRAND RN OPENING NOTES RECEIVED PT LYING ON BED.ALERT/ORIENTED X3.ON TELE HR IS 70'S WITH SR.ON NC 3L CONTINUOUSLY.TOLERATING WELL.NO SOB AND ACUTE DISTRESS NOTED.IV LINE IS ON LEFT AC G20,SITE IS CLEAN,DRY AND INTACT.NO INFILTRATION NOTED./SAFETY IS MAINTAINED CAITLIN LL TIMES.CALL LIGHT NS WITHIN REACH.WILL CONTINUE TO MONITOR THE PT CLOSELY.
[2018-06-18] MEDS: PANTOPRAZOLE 40 MG TABLET.DR PO SCH (08:01)
[2018-06-18 08:22] LABS: BASOPHILS % (AUTO) 0.3 % (0.0-2.0); EOSINOPHILS % (AUTO) 0.3 % (0.0-6.0); HEMATOCRIT 32 % (33-45); HEMOGLOBIN 10.1 g/dL (11.5-14.8); LYMPHOCYTES # (AUTO) 1.7 /CMM (0.8-4.8); LYMPHOCYTES % (AUTO) 18.6 % (20.0-44.0); MEAN CORPUSCULAR HGB CONC 32 g/dl (31.0-36.0); MEAN CORPUSCULAR VOLUME 87 fL (82-100); MONOCYTES # (AUTO) 0.5 /CMM (0.1-1.30); MONOCYTES % (AUTO) 5.9 % (2.0-12.0); NEUTROPHILS # (AUTO) 6.9 /CMM (1.8-8.9); NEUTROPHILS % (AUTO) 74.9 % (43.0-81.0); PLATELET COUNT (AUTO) 308 /CMM (150-450); RED BLOOD CELL COUNT(AUTO) 3.65 MIL/uL (4.0-5.2); WHITE BLOOD COUNT (AUTO) 9.3 K/uL (4.3-11.0)
[2018-06-18] MEDS: SPIRONOLACTONE 25 MG TABLET PO SCH (08:30)
[2018-06-18] MEDS: CHOLECALCIFEROL 1,000 UNIT TABLET (VIT D3) PO SCH (08:30)
[2018-06-18] MEDS: CIPROFLOXACIN HCL 500 MG TABLET PO SCH (08:30)
[2018-06-18] MEDS: FUROSEMIDE 40 MG TABLET PO SCH ×2 (08:30→17:17)
[2018-06-18] MEDS: MAGNESIUM OXIDE 400 MG TABLET PO SCH (08:30)
[2018-06-18] MEDS: FENOFIBRATE NANOCRYS (145 MG) 145 MG TABLET PO SCH (08:30)
[2018-06-18] MEDS: ATORVASTATIN 10 MG TABLET PO SCH (08:30)
[2018-06-18 08:31] LABS: ALANINE AMINOTRANSFERASE 18 U/L (12-78); ALKALINE PHOSPHATASE 38 U/L (46-116); ASPARTATE AMINOTRANSFERASE 21 U/L (15-37); BILIRUBIN,TOTAL 0.3 mg/dL (0.2-1.0); CALCIUM, SERUM 8.7 mg/dL (8.5-10.1); CARBON DIOXIDE 39 mmol/L (21-32); CHLORIDE 98 mmol/L (98-107); CREATININE 1.9 mg/dL (0.6-1.3); GLUCOSE 133 mg/dL (74-106); MAGNESIUM 2.5 mg/dL (1.8-2.4); PHOSPHORUS 3.3 mg/dL (2.5-4.9); POTASSIUM 3.7 mmol/L (3.5-5.1); SODIUM SERUM 139 mmol/L (136-145); TOTAL PROTEIN, SERUM 6.8 g/dL (6.4-8.2); UREA NITROGEN, BLOOD 41 mg/dL (7-18)
[2018-06-18] MEDS: FOLIC ACID 1 MG TABLET PO SCH (08:31)
[2018-06-18] MEDS: ASPIRIN EC 81 MG TABLET.DR PO SCH (08:31)
[2018-06-18] MEDS: CYANOCOBALAMIN 500 MCG TABLET PO SCH (08:31)
[2018-06-18] MEDS: MEGESTROL ACETATE 40 MG TABLET PO SCH ×3 (08:31→17:18)
[2018-06-18] MEDS: LOSARTAN POTASSIUM 50 MG TABLET PO SCH (08:31)
[2018-06-18] MEDS: DOCUSATE SODIUM 100 MG CAPSULE PO SCH ×2 (08:31→17:17)
[2018-06-18] MEDS: POTASSIUM CHLORIDE 20 MEQ TAB.PRT.SR PO SCH (08:31)
[2018-06-18] MEDS: CLOTRIMAZOLE 1% 15 GM TUBE TP SCH ×2 (09:44→17:18)
[2018-06-18] MEDS: AMMONIUM LACTATE 227 GM BOTTLE TP SCH ×2 (09:44→17:18)
[2018-06-18] MEDS: ACETAMINOPHEN ES 500 MG TABLET PO PRN (17:18)
--- NOTE | 2018-06-18 18:36 | NUR ---
JUNIOR BUSINESS ANALYST CLOSING NOTES PT IS LYING ON BED.ALERT/ORIENTED X4.CAN AMBULATE WELL WITH WAKER,ON TELE HR IS 70'S WITH SR.NO SOB AND ACUTE DISTRESS NOTED.NO SIGNIFICANT CHANGES NOTED IN THE SHIFT.WILL ENDORSE NEXT SHIFT RN FOR NEIL.
[2018-06-18] MEDS: NITROFURANTOIN/NITROFURAN MAC 100 MG CAPSULE PO SCH (20:42)
--- NOTE | 2018-06-18 23:28 | NUR ---
PT PLACED ON BIPAP ON AVAPS MODE PER DR LESLIE REQUEST. NO RESP DISTRESS OR SOB NOTED. PT AWAKE AND ALERT. ALARMS ARE SET AND AUDIBLE. BIPAP PLUGGED INTO RED OUTLET. WILL CONTINUE TO MONITOR Addendum: 06/19/18 at 0159 by NANCI MILES RT Amended: Links added.
[2018-06-19] VITALS: BP 124/59
--- NOTE | 2018-06-19 00:52 | NUR ---
pt refuses to keep bipap mask on. pt taken off bipap and placed on 3lnc Addendum: 06/19/18 at 0156 by NANCI MILES RT Amended: Links added.
[2018-06-19] MEDS: IPRATROPIUM NEB FS 0.5 MG/2.5 ML AMPUL.NEB NEB SCH ×3 (01:49→13:30)
[2018-06-19] MEDS: ALBUTEROL FS 2.5 MG/3 ML VIAL.NEB NEB SCH ×3 (01:49→13:30)
[2018-06-19 04:00] VITALS: BP 125/73
--- NOTE | 2018-06-19 06:00 | NUR ---
PT WAS ON BIPAP BUT PT KEPT TAKING IT OFF, RESUME BACK TO NASAL CANNULA AT 3 LITERS, NO ACUTE DISTRESS. SINUS RHYTHM ON MONITOR. KEPT CLEAN AND DRY. VSS,AFEBRILE.
--- NOTE | 2018-06-19 07:05 | NUR ---
DIABETES EDUCATOR OPENING NOTES RECEIVED PT LYING ON BED.ALERT/ORIENTED X3.ON TELE HR IS 80'S WITH SR.ON NC 3L CONTINUOUSLY.TOLERATING WELL.NO SOB AND ACUTE DISTRESS NOTED.IV LINE IS ON LEFT AC G20,SITE IS CLEAN,DRY AND INTACT.NO INFILTRATION NOTED.DENIES PAIN.SAFETY IS MAINTAINED AT ALL TIMES.CALL LIGHT NS WITHIN REACH.WILL CONTINUE TO MONITOR THE PT CLOSELY.
[2018-06-19 07:17] LABS: BASOPHILS % (AUTO) 0.4 % (0.0-2.0); EOSINOPHILS % (AUTO) 3.5 % (0.0-6.0); HEMATOCRIT 31 % (33-45); HEMOGLOBIN 9.9 g/dL (11.5-14.8); LYMPHOCYTES # (AUTO) 1.9 /CMM (0.8-4.8); LYMPHOCYTES % (AUTO) 20.9 % (20.0-44.0); MEAN CORPUSCULAR HGB CONC 32 g/dl (31.0-36.0); MEAN CORPUSCULAR VOLUME 88 fL (82-100); MONOCYTES # (AUTO) 0.7 /CMM (0.1-1.30); MONOCYTES % (AUTO) 7.6 % (2.0-12.0); NEUTROPHILS # (AUTO) 6.2 /CMM (1.8-8.9); NEUTROPHILS % (AUTO) 67.6 % (43.0-81.0); PLATELET COUNT (AUTO) 289 /CMM (150-450); RED BLOOD CELL COUNT(AUTO) 3.56 MIL/uL (4.0-5.2); WHITE BLOOD COUNT (AUTO) 9.2 K/uL (4.3-11.0)
[2018-06-19 07:32] LABS: ALANINE AMINOTRANSFERASE 17 U/L (12-78); ALKALINE PHOSPHATASE 34 U/L (46-116); ASPARTATE AMINOTRANSFERASE 18 U/L (15-37); BILIRUBIN,TOTAL 0.3 mg/dL (0.2-1.0); CALCIUM, SERUM 8.9 mg/dL (8.5-10.1); CARBON DIOXIDE 39 mmol/L (21-32); CHLORIDE 99 mmol/L (98-107); CREATININE 1.8 mg/dL (0.6-1.3); GLUCOSE 88 mg/dL (74-106); MAGNESIUM 2.5 mg/dL (1.8-2.4); PHOSPHORUS 4.3 mg/dL (2.5-4.9); POTASSIUM 4.2 mmol/L (3.5-5.1); SODIUM SERUM 141 mmol/L (136-145); TOTAL PROTEIN, SERUM 6.7 g/dL (6.4-8.2); UREA NITROGEN, BLOOD 41 mg/dL (7-18)
[2018-06-19 08:00] VITALS: BP 130/77
[2018-06-19] MEDS: PANTOPRAZOLE 40 MG TABLET.DR PO SCH (08:07)
[2018-06-19] MEDS: ATORVASTATIN 10 MG TABLET PO SCH (08:40)
[2018-06-19] MEDS: NITROFURANTOIN/NITROFURAN MAC 100 MG CAPSULE PO SCH (08:40)
[2018-06-19] MEDS: MAGNESIUM OXIDE 400 MG TABLET PO SCH (08:40)
[2018-06-19] MEDS: CHOLECALCIFEROL 1,000 UNIT TABLET (VIT D3) PO SCH (08:40)
[2018-06-19] MEDS: SPIRONOLACTONE 25 MG TABLET PO SCH (08:41)
[2018-06-19] MEDS: FUROSEMIDE 40 MG TABLET PO SCH (08:41)
[2018-06-19] MEDS: DOCUSATE SODIUM 100 MG CAPSULE PO SCH (08:41)
[2018-06-19] MEDS: ASPIRIN EC 81 MG TABLET.DR PO SCH (08:41)
[2018-06-19] MEDS: MEGESTROL ACETATE 40 MG TABLET PO SCH (08:41)
[2018-06-19] MEDS: POTASSIUM CHLORIDE 20 MEQ TAB.PRT.SR PO SCH (08:41)
[2018-06-19] MEDS: FENOFIBRATE NANOCRYS (145 MG) 145 MG TABLET PO SCH (08:41)
[2018-06-19] MEDS: CYANOCOBALAMIN 500 MCG TABLET PO SCH (08:41)
[2018-06-19] MEDS: FOLIC ACID 1 MG TABLET PO SCH (08:42)
[2018-06-19 08:45] VITALS: BP 130/77
[2018-06-19] MEDS: LOSARTAN POTASSIUM 50 MG TABLET PO SCH (08:45)
[2018-06-19] MEDS: CLOTRIMAZOLE 1% 15 GM TUBE TP SCH (08:47)
[2018-06-19] MEDS: AMMONIUM LACTATE 227 GM BOTTLE TP SCH (08:47)
[2018-06-19 08:55] LABS: ABG BASE EXCESS 10.1 mmol/L; ABG OXYGEN SATURATION 83.5 % (92.0-98.5); ABG PCO2 65.6 mmHg (35.0-45.0); ABG PH 7.373 (7.350-7.450); AaDO2 48.4 mmHg; COHb 0.8 % (0.5-1.5); MetHb 0.6 % (0.0-1.5); O2Hb 82.3 % (94.0-97.0); SITE, ABG Right Radial; VENT MODE, BG Nasal Cannula
--- NOTE | 2018-06-19 11:55 | NUR ---
NON LICENSED NUCLEAR EQUIPMENT OPERATORPACKING MACHINE CAN FEEDER NOTES PT IS DISCHARGED TO HOME VIA PRIVATE CAR WITH CAL,DAUGHTER IN LAW.ALL THE DISCHARGE MEDICATIONS AND FOLLOW UP APPOINTMENT HAS DISCUSSED WITH CAREGIVER,VERBALIZED UNDERSTOOD LANGUAGE BARRIER WITH PT.IV LINE FROM LEFT AC HAS REMOVED.SKIN ASSESSMENT HAS DONE.VITAL SIGNS CHECKED AND RECORDED.PT IS READY WITH HOSPITAL GOWN FAMILY DIDN'T BRING ANY CLOTHS.NO BELONGINGS IS WITH THE PT.SEND PT VIA WHEELCHAIR BY MACHINE III COREMAKER TO [facility] PARKING LOT AND WENT TO HOME WITH HOME SETTING OXYGEN.PT TOLERATED WELL.NO SOB AND ACUTE DISTRESS NOTED. @1115 THE DE LA O CATHETER IS REMOVED,NO COMPLICATIONS NOTED AND @1155 THE PT IS NOT VOIDED YET,DISCUSSED WITH CAL.REPLIED"ITS OK I WILL TAKE CARE MOM IN THE HOME".CHARGE NURSE MADE AWARE.
== END 2018-06-19 11:57 | disposition home or self-care (01) | DRG 194 ==
LOC: ER 17:15 → TELE 20:46 → ICU 06-15 02:10 → TELE-TD 06-17 22:05 → TELE1 06-18 10:06
PROVIDERS: ADMIT Family Medicine; ATTEND Family Medicine
PROC: 5A09457 Assistance with Respiratory Ventilation, 24-96 Consecutive Hours, Continuous Positive Airway Pressure (ICD-10-PCS; principal; 2018-06-15)
DX: I13.0 Hypertensive heart and chronic kidney disease with heart failure and stage 1 through stage 4 chronic kidney disease, or unspecified chronic kidney disease (principal); J96.21 Acute and chronic respiratory failure with hypoxia; N17.0 Acute kidney failure with tubular necrosis; G92 Toxic encephalopathy; E46 Unspecified protein-calorie malnutrition; E87.2 Acidosis; B35.1 Tinea unguium; E66.2 Morbid (severe) obesity with alveolar hypoventilation; E83.51 Hypocalcemia; I25.10 Atherosclerotic heart disease of native coronary artery without angina pectoris; J44.1 Chronic obstructive pulmonary disease with (acute) exacerbation; I50.33 Acute on chronic diastolic (congestive) heart failure; J96.22 Acute and chronic respiratory failure with hypercapnia; Z99.81 Dependence on supplemental oxygen; N39.0 Urinary tract infection, site not specified; B96.20 Unspecified Escherichia coli [E. coli] as the cause of diseases classified elsewhere; N18.2 Chronic kidney disease, stage 2 (mild); B35.3 Tinea pedis; F03.90 Unspecified dementia, unspecified severity, without behavioral disturbance, psychotic disturbance, mood disturbance, and anxiety; E78.5 Hyperlipidemia, unspecified; G44.209 Tension-type headache, unspecified, not intractable; G62.9 Polyneuropathy, unspecified; K21.9 Gastro-esophageal reflux disease without esophagitis; M81.0 Age-related osteoporosis without current pathological fracture; Z79.51 Long term (current) use of inhaled steroids; Z79.82 Long term (current) use of aspirin; Z79.899 Other long term (current) drug therapy; Z86.73 Personal history of transient ischemic attack (TIA), and cerebral infarction without residual deficits; Z87.891 Personal history of nicotine dependence; Z91.19 Patient's noncompliance with other medical treatment and regimen; D64.9 Anemia, unspecified
CPT/HCPCS: 36415; 36600; 70551-TC; 71045-TC; 80048-TC; 80053-TC; 80076-TC; 81000-TC; 82378; 82550-TC; 82570-TC; 82728-TC; 82803-TC; 83540-TC; 83615-TC; 83735-TC; 83880; 83970; 84100-TC; 84155; 84155-TC; 84165; 84300-TC; 84443-TC; 84484-TC; 84550-TC; 85025-TC; 85045-TC; 85652-TC; 85730-TC; 87081-TC; 87086-TC; 87186-TC; 94660; 94760-TC; 94799-TC; 95819-TC; 99082-TC; A6402; G0378; J1720; J1940; J2916; J7030